=== PATIENT | male | born 1955 | race African-American/Black ===

== ENCOUNTER 2018-02-13 11:48 | Inpatient (IN) | payer OTHER ==
[2018-02-13 18:50] VITALS: BMI 29.0
--- NOTE | 2018-02-13 19:10 | HP ---
CIWA Score - CIWA Score Nausea/Vomitin-Int. Nausea w/Dry Heave Muscle Tremors: 2 Anxiety: 3 Agitation: 2 Paroxysmal Sweats: 2 Orientation: 0-Oriented Tacttile Disturbances: 1-Very Mild Itch/Numbness (both feet) Auditory Disturbances: 0-None Visual Disturbances: 0-None Headache: 2-Mild CIWA-Ar Total Score: 16 Admission ROS BHS - HPI Chief Complaint: alcohol withdrawal symptoms Allergies/Adverse Reactions: Allergies Allergy/AdvReac Type Severity Reaction Status Date / Time No Known Allergies Allergy Verified 02/13/18 18:42 History of Present Illness: 62 yo male with hx of alcohol, cocaine and nicotine dependence is here seeking alcohol detox. Reports six visits to the emergency for chest pain, last admission one week ago at [facility]. PMHX: GERD, HTN, Angina, CAD with hx STENT x 2, HDL, OA, chronic back pain, depression, anxiety, bipolar and PTSD. Denies hx of seizures, reports frequent EOTH related blackouts, five episodes in the last three weeks. Longest period of sobriety two years while in [facility]. Exam Limitations: No Limitations - Ebola screening Have you traveled outside of the country in the last 21 days: No Have you had contact with anyone from an Ebola affected area: No Have you been sick,other than usual withdrawal symptoms: No Do you have a fever: No - Review of Systems Constitutional: Diaphoresis EENT: reports: Cataracts (bilateral) Respiratory: reports: No Symptoms reported Cardiac: reports: See HPI, Lightheadedness GI: reports: Diarrhea, Poor Fluid Intake : reports: No Symptoms Reported Musculoskeletal: reports: Back Pain, Joint Pain Integumentary: reports: No Symptoms Reported Neuro: reports: Headache Endocrine: reports: Increased Thirst Hematology: reports: See HPI Psychiatric: reports: Orientated x3, Depressed Other Systems: Reviewed and Negative Patient History - Patient Medical History Hx Anemia: No Hx Asthma: No Hx Chronic Obstructive Pulmonary Disease (COPD): No Hx Cancer: No Hx Cardiac Disorders: Yes (hx of STENt x 2 ) Hx Congestive Heart Failure: No Hx Hypertension: Yes Hx Hypercholesterolemia: Yes Hx Pacemaker: No HX Cerebrovascular Accident: No Hx Seizures: No Hx Dementia: No Hx Diabetes: No Hx Gastrointestinal Disorders: Yes Hx Liver Disease: No Hx Genitourinary Disorders: No Hx Sexually Transmitted Disorders: No Hx Renal Disease (ESRD): No Hx Thyroid Disease: No Hx Human Immunodeficiency Virus (HIV): No (last tested aug 2017) Hx Hepatitis C: Yes (treated ) Hx Depression: Yes Hx Suicide Attempt: No Hx Bipolar Disorder: Yes Hx Schizophrenia: No - Patient Surgical History Past Surgical History: Yes Hx Neurologic Surgery: No Hx Cataract Extraction: Yes (2 STENTS 2010) Hx Cardiac Surgery: No Hx Lung Surgery: No Hx Breast Surgery: No Hx Breast Biopsy: No Hx Abdominal Surgery: No Hx Appendectomy: No Hx Cholecystectomy: No Hx Genitourinary Surgery: No Hx Section: No Hx Orthopedic Surgery: No Hx Hysterectomy: No Anesthesia Reaction: No - PPD History Previous Implant?: No Documented Results: Negative w/o proof PPD to be Administered?: Yes - Smoking Cessation Smoking history: Current every day smoker Have you smoked in the past 12 months: Yes Aproximately how many cigarettes per day: 20 Hx Chewing Tobacco Use: No Initiated information on smoking cessation: Yes 'Breaking Loose' booklet given: 02/13/18 - Substance & Tx. History Hx Alcohol Use: Yes Substance Use Type: Alcohol, Cocaine Hx Substance Use Treatment: Yes (ACI three weeks ago ) - Substances Abused Alcohol Route: Oral Frequency: Daily Amount used: 1 L LIQUOR AND 6/PACK BEER Age of first use: 18 Date of Last Use: 02/13/18 Cocaine Route: Smoking Frequency: Daily Amount used: 1 GRAM Age of first use: 18 Date of Last Use: 02/13/18 Family Disease History - Family Disease History Family History: Unable to Obtain Admission Physical Exam BHS - Vital Signs Vital Signs: Vital Signs - 24 hr 02/13/18 18:47 Temperature 98.7 F Pulse Rate 89 Respiratory 18 Rate Blood Pressure 108/64 - Physical General Appearance: Yes: Appropriately Dressed, Sweating, Anxious HEENTM: Yes: EOMI, Hearing grossly Normal, Normal ENT Inspection, Normocephalic , Normal Voice, JIL, Pharynx Normal, Tm's normal Respiratory: Yes: Chest Non-Tender, Lungs Clear, Normal Breath Sounds, No Respiratory Distress, No Accessory Muscle Use Neck: Yes: Within Normal Limits Breast: Yes: Breast Exam Deferred Cardiology: Yes: Regular Rhythm, Regular Rate Abdominal: Yes: Normal Bowel Sounds, Non Tender, Soft, Protuberent Genitourinary: Yes: Within Normal Limits Back: Yes: Normal Inspection Musculoskeletal: Yes: full range of Motion, Gait Steady, Pelvis Stable, Back pain, Other (b/l knee pain) Extremities: Yes: Normal Capillary Refill, Normal Inspection, Normal Range of Motion, Non-Tender Neurological: Yes: 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 NML intact, Fully Oriented, Alert, Motor Strength 5/5, Depressed Affect Integumentary: Yes: Normal Color, Warm, Diaphoresis Lymphatic: Yes: Within Normal Limits - Diagnostic (1) HTN (hypertension) Current Visit: Yes Status: Chronic Qualifiers: Hypertension type: essential hypertension Qualified Code(s): I10 - Essential (primary) hypertension (2) Hyperlipidemia Current Visit: Yes Status: Chronic Qualifiers: Hyperlipidemia type: unspecified Qualified Code(s): E78.5 - Hyperlipidemia , unspecified (3) Coronary artery disease Current Visit: Yes Status: Chronic (4) History of heart artery stent Current Visit: Yes Status: Chronic (5) GERD (gastroesophageal reflux disease) Current Visit: Yes Status: Chronic Qualifiers: Esophagitis presence: without esophagitis Qualified Code(s): K21.9 - Gastro -esophageal reflux disease without esophagitis (6) Cocaine dependence Current Visit: Yes Status: Acute Qualifiers: Substance use status: uncomplicated Qualified Code(s): F14.20 - Cocaine dependence, uncomplicated (7) Alcohol dependence with withdrawal Current Visit: Yes Status: Acute Qualifiers: Complication of substance-induced condition: uncomplicated Qualified Code(s ): F10.230 - Alcohol dependence with withdrawal, uncomplicated Cleared for Admission [facility] - Detox or Rehab [facility] Level of Care: Medically Managed Detox Regimen/Protocol: Librium [facility] Breath Alcohol Content Breath Alcohol Content: 0.118 Urine Drug Screen - Results Drug Screen Negative: No Urine Drug Screen Results: DESIREE-Cocaine, BZO-Benzodiazepines
[2018-02-13] MEDS ORDERED: MAGNESIUM CITRATE 300 ML BOTTLE PO PRN (19:31)
[2018-02-13] MEDS ORDERED: chlordiazePOXIDE HCL 25 MG CAPSULE PO ONE (19:31)
[2018-02-13] MEDS ORDERED: MAGNESIUM HYDROX 2400MG/30ML ORAL SUSPENSION 30 ML CUP PO PRN (19:31)
[2018-02-13] MEDS ORDERED: MAG HYDROX/AL HYDROX/SIMETH 30 ML UNIT-DOSE CUP PO PRN (19:31)
[2018-02-13] MEDS ORDERED: guaiFENesin/D-METHORPHAN HB 10 ML UNIT-DOSE CUPS PO PRN (19:31)
[2018-02-13] MEDS ORDERED: chlordiazePOXIDE HCL 25 MG CAPSULE PO PRN (19:31)
[2018-02-13] MEDS ORDERED: P-EPHED 60MG/TRIPROLIDI 2.5MG TABLET PO PRN (19:31)
[2018-02-13] MEDS ORDERED: LOPERAMIDE HCL 2 MG CAPSULE PO PRN (19:31)
[2018-02-13] MEDS ORDERED: MENTHOL/PHENOL 1 EACH UD MM PRN (19:31)
[2018-02-13] MEDS ORDERED: ACETAMINOPHEN 325 MG TABLET (FP) PO PRN (19:31)
[2018-02-13] MEDS: GABAPENTIN 300 MG CAPSULE (FP) PO SCH (21:13)
[2018-02-13] MEDS: CARVEDILOL 6.25 MG TABLET (FP) PO SCH (21:13)
[2018-02-13] MEDS: ATORVASTATIN CA 40 MG TABLET (FP) PO SCH (21:13)
[2018-02-13] MEDS: THIAMINE HCL 100 MG TABLET (FP) PO SCH (21:13)
[2018-02-13] MEDS ORDERED: MELATONIN 5 MG TABLETS PO PRN (22:00)
[2018-02-13] MEDS ORDERED: CLOPIDOGREL BISULFATE 75 MG TABLET (FP) PO SCH (22:00)
[2018-02-13] MEDS: chlordiazePOXIDE HCL 25 MG CAPSULE PO SCH (22:42)
[2018-02-13 23:23] LABS: URINE APPEARANCE SLCLOUDY; URINE BILIRUBIN NEGATIVE (<2.0 mg/dL); URINE COLOR YELLOW; URINE GLUCOSE (UA) NEGATIVE (NEGATIVE); URINE KETONE NEGATIVE (NEGATIVE); URINE LEUK ESTERASE NEGATIVE (NEGATIVE); URINE NITRITE NEGATIVE (NEGATIVE); URINE PROTEIN NEGATIVE (NEGATIVE); URINE UROBILINOGEN NEGATIVE mg/dL (0.2-1.0)
[2018-02-14] MEDS: chlordiazePOXIDE HCL 25 MG CAPSULE PO SCH ×4 (05:46→22:40)
[2018-02-14] MEDS: GABAPENTIN 300 MG CAPSULE (FP) PO SCH ×3 (05:46→22:39)
[2018-02-14] MEDS ORDERED: PATIENT'S OWN MEDICATION (NON-FORMULARY) (Omeprazole Magnesium [Prilosec Otc] 20 MG) PO SCH (10:00)
[2018-02-14] MEDS ORDERED: PANTOPRAZOLE 20 MG TABLET (FP) PO SCH (10:00)
[2018-02-14] MEDS: CARVEDILOL 6.25 MG TABLET (FP) PO SCH ×2 (10:08→22:39)
[2018-02-14] MEDS: PRENATAL VITAMINS W/ FOLIC ACID TABLET (FP) PO SCH (10:08)
[2018-02-14] MEDS: ASPIRIN COATED 81 MG TABLET.EC PO SCH (10:08)
[2018-02-14] MEDS: ISOSORBIDE MONONITRATE 30 MG TAB.SR.24H (FP) PO SCH (10:08)
[2018-02-14] MEDS: LISINOPRIL 10 MG TABLET (FP) PO SCH (10:08)
[2018-02-14 10:25] LABS: HEMATOCRIT 40.6 % (35.4-49); MCH 32.8 pg (25.7-33.7); MCHC 34.5 g/dl (32.0-35.9); MEAN CELL VOLUME 95.3 fl (80-96); MEAN PLT VOLUME 7.8 fl (7.5-11.1); PLATELET COUNT 215 K/MM3 (134-434); RBC 4.26 M/mm3 (4.00-5.60); RDW 14.4 % (11.9-15.9)
[2018-02-14 10:46] LABS: ALBUMIN 3.2 g/dl (3.4-5.0); ANION GAP 7 (8-16); BLOOD UREA NITROGEN 11 mg/dL (7-18); CALCIUM 8.2 mg/dL (8.5-10.1); CHLORIDE 105 mmol/L (98-107); CO2 31 mmol/L (21-32); GLUCOSE,RANDOM 106 mg/dL (74-106); POTASSIUM 3.3 mmol/L (3.5-5.1); SGOT/AST 17 U/L (15-37); SGPT/ALT 20 U/L (12-78); SODIUM 143 mmol/L (136-145)
[2018-02-14 10:49] LABS: ALK PHOS 65 U/L (45-117); BILIRUBIN,TOTAL 0.3 mg/dL (0.2-1.0); TOT PROT 6.4 g/dl (6.4-8.2)
--- NOTE | 2018-02-14 10:49 | PN ---
S CIWA - CIWA Score Nausea/Vomitin-No Nausea/No Vomiting Muscle Tremors: 3 Anxiety: 4-Mod. Anxious/Guarded Agitation: 4-Moderately Restless Paroxysmal Sweats: 2 Orientation: 0-Oriented Tacttile Disturbances: 0-None Auditory Disturbances: 0-None Visual Disturbances: 0-None Headache: 0-None Present CIWA-Ar Total Score: 13 BHS Progress Note (SOAP) Subjective: C/O ANXIETY,SWEATS,SLIGHT TREMORS,FATIGUE. Objective: 02/14/18 10:44 Vital Signs 02/14/18 02/14/18 02/14/18 03:30 06:17 09:48 Temperature 97.1 F L 97.4 F L Pulse Rate 65 75 Respiratory 18 18 18 Rate Blood Pressure 123/72 161/94 Laboratory Tests 02/13/18 02/14/18 22:00 07:00 WBC 7.0 RBC 4.26 Hgb 14.0 Hct 40.6 MCV 95.3 MCH 32.8 MCHC 34.5 RDW 14.4 Plt Count 215 MPV 7.8 Urine Color Yellow Urine Appearance Slcloudy Urine pH 5.0 Ur Specific [place] 1.011 Urine Protein Negative Urine Glucose (UA) Negative Urine Ketones Negative Urine Blood Negative Urine Nitrite Negative Urine Bilirubin Negative Urine Urobilinogen Negative Ur Leukocyte Esterase Negative Assessment: 02/14/18 10:44 WITHDRAWAL SX Plan: CONTINUE DETOX
--- NOTE | 2018-02-14 11:14 | EKG ---
Test Reason : Blood Pressure : / mmHG Vent. Rate : 084 BPM Atrial Rate : 084 BPM P-R Int : 128 ms QRS Dur : 102 ms QT Int : 384 ms P-R-T Axes : 014 071 221 degrees QTc Int : 453 ms NORMAL SINUS RHYTHM ABNORMAL ECG NO PREVIOUS ECGS AVAILABLE Confirmed by SAMPSON FARIAS MD ([id number]) on 02/14/2018 11:13:58 AM Referred By: Confirmed By:SAMPSON FARIAS MD
--- NOTE | 2018-02-14 14:00 | CONSULT ---
[facility] Psychiatric Consult - Data Date of interview: 02/14/18 Admission source: [facility] Identifying data: Readmission to [facility] for this 62 y/o AA male seeking detox treatment on for alcohol and cocaine dependence.Patient is single , a father of five,homeless,unemployed and supported on welfare. Substance Abuse History: Confirmed by the patient in this interview.Smoking history: Current every day smoker. Have you smoked in the past 12 months: Yes. Aproximately how many cigarettes per day: 20. Hx Chewing Tobacco Use: No. Initiated information on smoking cessation: Yes. 'Breaking Loose' booklet given : 02/13/18. - Substance & Tx. History. Hx Alcohol Use: Yes. Substance Use Type: Alcohol, Cocaine. Hx Substance Use Treatment: Yes (ACI three weeks ago ) . - Substances Abused. Alcohol. Route: Oral. Frequency: Daily. Amount used: 1 L LIQUOR AND 6/PACK BEER. Age of first use: 18. Date of Last Use: . Cocaine. Route: Smoking. Frequency: Daily. Amount used: 1 GRAM. Age of first use: 18. Date of Last Use: 02/13/18 Medical History: Multiple co-morbidites : hypertension,arthritis,GERD,coraonary artery disease (stents x 2),cataracts (bilateral),hepatitis C (treated),angina and a history of chronic lumbar pain. Psychiatric History: No reported history of psychiatric hospitalizations.Patient sees a psychiatrist at the [facility] in [facility].Diagnosed with MDD and mabnaged on a regimen of zoloft and trazodone (doses not recalled).Mr Folod denies history of suicide attempts. Physical/Sexual Abuse/Trauma History: Patient denies. Additional Comment: Urine Drug Screen Results: DESIREE-Cocaine, BZO- Benzodiazepines.Noted. Mental Status Exam - Mental Status Exam Alert and Oriented to: Time, Place, Person Cognitive Function: Good Patient Appearance: Well Groomed Mood: Hopeful Affect: Normal Range Patient Behavior: Fatigued, Cooperative Speech Pattern: Clear, Appropriate Voice Loudness: Normal Thought Process: Intact, Goal Oriented Thought Disorder: Not Present Hallucinations: Denies Suicidal Ideation: Denies Homicidal Ideation: Denies Insight/Judgement: Poor Sleep: Poorly, Difficulty falling asleep Appetite: Good Muscle strength/Tone: Normal Gait/Station: Normal Psychiatric Findings - Problem List ([place] 1, 2,3) (1) Alcohol dependence with withdrawal Current Visit: Yes Status: Acute Qualifiers: Complication of substance-induced condition: uncomplicated Qualified Code(s ): F10.230 - Alcohol dependence with withdrawal, uncomplicated (2) Cocaine dependence Current Visit: Yes Status: Acute Qualifiers: Substance use status: uncomplicated Qualified Code(s): F14.20 - Cocaine dependence, uncomplicated (3) Nicotine dependence Current Visit: Yes Status: Acute (4) Substance induced mood disorder Current Visit: Yes Status: Acute (5) Insomnia Current Visit: Yes Status: Acute - Initial Treatment Plan Initial Treatment Plan: Psychoeducation.Sleep hygiene.Detoxification in progress.Patient declines to resume trazodone (drowsiness in the morning) but agrees to restart mirtazapine.Ordered : remeron 7.5 mg po hs.Side effects/ benefits discussed with the patient.Consent (verbal) given.Observation.
[2018-02-14] MEDS: CLOPIDOGREL BISULFATE 75 MG TABLET (FP) PO SCH (18:50)
[2018-02-14] MEDS: ATORVASTATIN CA 40 MG TABLET (FP) PO SCH (22:39)
[2018-02-14] MEDS: THIAMINE HCL 100 MG TABLET (FP) PO SCH (22:39)
[2018-02-14] MEDS: RANITIDINE HCL 150 MG TABLET (FP) PO SCH (22:39)
[2018-02-14] MEDS: MIRTAZAPINE 15 MG TABLET (FP) PO SCH (22:39)
[2018-02-15] MEDS: chlordiazePOXIDE HCL 25 MG CAPSULE PO SCH ×3 (06:14→17:20)
[2018-02-15] MEDS: GABAPENTIN 300 MG CAPSULE (FP) PO SCH ×3 (06:14→22:32)
[2018-02-15] MEDS: ISOSORBIDE MONONITRATE 30 MG TAB.SR.24H (FP) PO SCH (10:05)
[2018-02-15] MEDS: CARVEDILOL 6.25 MG TABLET (FP) PO SCH ×2 (10:05→22:33)
[2018-02-15] MEDS: RANITIDINE HCL 150 MG TABLET (FP) PO SCH ×2 (10:05→22:33)
[2018-02-15] MEDS: PRENATAL VITAMINS W/ FOLIC ACID TABLET (FP) PO SCH (10:05)
[2018-02-15] MEDS: LISINOPRIL 10 MG TABLET (FP) PO SCH (10:05)
[2018-02-15] MEDS: SERTRALINE HCL 25 MG TABLET (FP) PO SCH (10:05)
[2018-02-15] MEDS: ASPIRIN COATED 81 MG TABLET.EC PO SCH (10:05)
--- NOTE | 2018-02-15 16:11 | PN ---
[facility] CIWA - CIWA Score Nausea/Vomitin-No Nausea/No Vomiting Muscle Tremors: 3 Anxiety: 3 Agitation: 2 Paroxysmal Sweats: No Perspiration Orientation: 2-Disoriented Date<2 days Tacttile Disturbances: 2-Mild Itch/Numbness/Burn Auditory Disturbances: 0-None Visual Disturbances: 1-Very Mild Sensitivity Headache: 0-None Present CIWA-Ar Total Score: 13 S Progress Note (SOAP) Subjective: Fatigue, Tremors, Anxious. Objective: PATIENT A & O X 2 (UNCERTAIN ABOUT CURRENT DAY / DATE). PATIENT OBSERVED AMBULATING ON UNIT. NO ACUTE DISTRESS. PATIENT DENIES CHEST PAIN. 02/15/18 16:10 Vital Signs Temperature 96.8 F L 02/15/18 13:45 Pulse Rate 72 02/15/18 13:45 Respiratory Rate 18 02/15/18 13:45 Blood Pressure 161/76 02/15/18 13:45 O2 Sat by Pulse Oximetry (%) Laboratory Tests 02/13/18 02/14/18 02/14/18 22:00 07:00 07:00 WBC 7.0 RBC 4.26 Hgb 14.0 Hct 40.6 MCV 95.3 MCH 32.8 MCHC 34.5 RDW 14.4 Plt Count 215 MPV 7.8 Sodium Potassium Chloride Carbon Dioxide Anion Gap BUN Creatinine Creat Clearance w eGFR Random Glucose Calcium Total Bilirubin AST ALT Alkaline Phosphatase Total Protein Albumin Urine Color Yellow Urine Appearance Slcloudy Urine pH 5.0 Ur Specific [place] 1.011 Urine Protein Negative Urine Glucose (UA) Negative Urine Ketones Negative Urine Blood Negative Urine Nitrite Negative Urine Bilirubin Negative Urine Urobilinogen Negative Ur Leukocyte Esterase Negative RPR Titer HIV 1&2 Antibody Screen Negative HIV P24 Antigen Negative 02/14/18 02/14/18 07:00 07:00 WBC RBC Hgb Hct MCV MCH MCHC RDW Plt Count MPV Sodium 143 Potassium 3.3 L Chloride 105 Carbon Dioxide 31 Anion Gap 7 L BUN 11 Creatinine 1.0 Creat Clearance w eGFR > 60 Random Glucose 106 Calcium 8.2 L Total Bilirubin 0.3 AST 17 ALT 20 Alkaline Phosphatase 65 Total Protein 6.4 Albumin 3.2 L Urine Color Urine Appearance Urine pH Ur Specific [place] Urine Protein Urine Glucose (UA) Urine Ketones Urine Blood Urine Nitrite Urine Bilirubin Urine Urobilinogen Ur Leukocyte Esterase RPR Titer Nonreactive HIV 1&2 Antibody Screen HIV P24 Antigen LABS NOTED. RESULTS OF ADMISSION AND REPEAT ECG'S NOTED. PATIENT REPORTS HISTORY OF CAD. 02/15/18 16:11 Assessment: 02/15/18 16:11 WITHDRAWAL SYMPTOMS. HYPERTENSION. HYPOKALEMIA. 02/15/18 16:13 Plan: CONTINUE DETOX. K-DUE, 20 MEQ PO BID.
[2018-02-15] MEDS: POTASSIUM CHLORIDE TABS 20 MEQ TABLET.ER (FP) PO SCH (17:20)
[2018-02-15] MEDS: CLOPIDOGREL BISULFATE 75 MG TABLET (FP) PO SCH (18:57)
[2018-02-15] MEDS: ATORVASTATIN CA 40 MG TABLET (FP) PO SCH (22:31)
[2018-02-15] MEDS: THIAMINE HCL 100 MG TABLET (FP) PO SCH (22:31)
[2018-02-15] MEDS: chlordiazePOXIDE 5 MG CAPSULE PO SCH (22:31)
[2018-02-15] MEDS: MIRTAZAPINE 15 MG TABLET (FP) PO SCH (22:32)
[2018-02-16] MEDS: GABAPENTIN 300 MG CAPSULE (FP) PO SCH ×3 (05:39→22:01)
[2018-02-16] MEDS: chlordiazePOXIDE 5 MG CAPSULE PO SCH ×3 (05:39→16:30)
[2018-02-16] MEDS: ISOSORBIDE MONONITRATE 30 MG TAB.SR.24H (FP) PO SCH (10:04)
[2018-02-16] MEDS: PRENATAL VITAMINS W/ FOLIC ACID TABLET (FP) PO SCH (10:04)
[2018-02-16] MEDS: POTASSIUM CHLORIDE TABS 20 MEQ TABLET.ER (FP) PO SCH ×2 (10:04→17:11)
[2018-02-16] MEDS: SERTRALINE HCL 25 MG TABLET (FP) PO SCH (10:04)
[2018-02-16] MEDS: ASPIRIN COATED 81 MG TABLET.EC PO SCH (10:05)
[2018-02-16] MEDS: LISINOPRIL 10 MG TABLET (FP) PO SCH (10:05)
[2018-02-16] MEDS: RANITIDINE HCL 150 MG TABLET (FP) PO SCH ×2 (10:05→22:02)
[2018-02-16] MEDS: CARVEDILOL 6.25 MG TABLET (FP) PO SCH (10:05)
--- NOTE | 2018-02-16 14:38 | PN ---
BHS Progress Note (SOAP) Subjective: Diarrhea Objective: 02/16/18 14:37 Last Vital Signs Temp Pulse Resp BP Pulse Ox 97.0 F L 63 19 160/92 02/16/18 09:36 02/16/18 09:36 02/16/18 09:36 02/16/18 09:36 Laboratory Tests 02/13/18 02/14/18 02/14/18 22:00 07:00 07:00 WBC 7.0 RBC 4.26 Hgb 14.0 Hct 40.6 MCV 95.3 MCH 32.8 MCHC 34.5 RDW 14.4 Plt Count 215 MPV 7.8 Sodium Potassium Chloride Carbon Dioxide Anion Gap BUN Creatinine Creat Clearance w eGFR Random Glucose Calcium Total Bilirubin AST ALT Alkaline Phosphatase Total Protein Albumin Urine Color Yellow Urine Appearance Slcloudy Urine pH 5.0 Ur Specific [place] 1.011 Urine Protein Negative Urine Glucose (UA) Negative Urine Ketones Negative Urine Blood Negative Urine Nitrite Negative Urine Bilirubin Negative Urine Urobilinogen Negative Ur Leukocyte Esterase Negative RPR Titer HIV 1&2 Antibody Screen Negative HIV P24 Antigen Negative 02/14/18 02/14/18 07:00 07:00 WBC RBC Hgb Hct MCV MCH MCHC RDW Plt Count MPV Sodium 143 Potassium 3.3 L Chloride 105 Carbon Dioxide 31 Anion Gap 7 L BUN 11 Creatinine 1.0 Creat Clearance w eGFR > 60 Random Glucose 106 Calcium 8.2 L Total Bilirubin 0.3 AST 17 ALT 20 Alkaline Phosphatase 65 Total Protein 6.4 Albumin 3.2 L Urine Color Urine Appearance Urine pH Ur Specific [place] Urine Protein Urine Glucose (UA) Urine Ketones Urine Blood Urine Nitrite Urine Bilirubin Urine Urobilinogen Ur Leukocyte Esterase RPR Titer Nonreactive HIV 1&2 Antibody Screen HIV P24 Antigen Labs reviewed: [place] 3.3 (supplemented) Assessment: 02/16/18 14:37 Withdrawal symptoms Noted with hypokalemia Plan: Continue detox Hypokalemia: supplemented
--- NOTE | 2018-02-16 17:58 | PN ---
S Progress Note Note: bp 183/101,hx of htn on medication,no complaint,withdrawal symptom, will give clonidine 0.1 mg po now,bp monitoring,continue detox
[2018-02-16] MEDS ORDERED: cloNIDine HCL 0.1 MG TABLET PO ONE (18:30)
[2018-02-16] MEDS ORDERED: ATORVASTATIN CA 20 MG TABLET (FP) ONE (20:01)
[2018-02-16] MEDS: CLOPIDOGREL BISULFATE 75 MG TABLET (FP) PO SCH (22:01)
[2018-02-16] MEDS: MIRTAZAPINE 15 MG TABLET (FP) PO SCH (22:02)
[2018-02-16] MEDS: ATORVASTATIN CA 40 MG TABLET (FP) PO SCH (22:02)
[2018-02-16] MEDS: THIAMINE HCL 100 MG TABLET (FP) PO SCH (22:02)
[2018-02-16] MEDS: CARVEDILOL 3.125 MG TABLET (FP) PO SCH (22:03)
[2018-02-17] MEDS: GABAPENTIN 300 MG CAPSULE (FP) PO SCH ×3 (06:37→22:19)
[2018-02-17] MEDS: chlordiazePOXIDE HCL 10 MG CAPSULE PO SCH ×2 (06:37→11:29)
--- NOTE | 2018-02-17 08:53 | EKG ---
Test Reason : Blood Pressure : / mmHG Vent. Rate : 087 BPM Atrial Rate : 087 BPM P-R Int : 130 ms QRS Dur : 104 ms QT Int : 372 ms P-R-T Axes : 074 062 246 degrees QTc Int : 447 ms NORMAL SINUS RHYTHM POSSIBLE LEFT ATRIAL ENLARGEMENT LEFT VENTRICULAR HYPERTROPHY ABNORMAL ECG WHEN COMPARED WITH ECG OF 13-FEB-2018 20:51, NO SIGNIFICANT CHANGE WAS FOUND Confirmed by Michelle Martinez ([id number]) on 02/17/2018 8:52:37 AM Also confirmed by LIONEL LIZ MD ([id number]) on 02/17/2018 11:50:07 AM Referred By: Confirmed By:LIONEL LIZ MD
[2018-02-17] MEDS: RANITIDINE HCL 150 MG TABLET (FP) PO SCH ×2 (11:21→22:19)
[2018-02-17] MEDS: PRENATAL VITAMINS W/ FOLIC ACID TABLET (FP) PO SCH (11:21)
[2018-02-17] MEDS: ISOSORBIDE MONONITRATE 30 MG TAB.SR.24H (FP) PO SCH (11:21)
[2018-02-17] MEDS: CARVEDILOL 3.125 MG TABLET (FP) PO SCH ×2 (11:22→22:19)
[2018-02-17] MEDS: LISINOPRIL 10 MG TABLET (FP) PO SCH (11:22)
[2018-02-17] MEDS: POTASSIUM CHLORIDE TABS 20 MEQ TABLET.ER (FP) PO SCH ×2 (11:22→17:02)
[2018-02-17] MEDS: SERTRALINE HCL 25 MG TABLET (FP) PO SCH (11:22)
--- NOTE | 2018-02-17 11:26 | PN ---
S Progress Note (SOAP) Subjective: Sleepy Objective: 02/17/18 11:24 A & O x 3 not in acute distress Vital Signs Temperature 96.8 F L 02/17/18 09:16 Pulse Rate 73 02/17/18 09:16 Respiratory Rate 18 02/17/18 09:16 Blood Pressure 151/95 02/17/18 09:16 O2 Sat by Pulse Oximetry (%) Pending Rehab bed Assessment: 02/17/18 11:25 detox completed Pt being processed for rehab bed tomorrow by counselors as he verbalized high risk of relapse if discharged today since [birth year] Pt for safe discharge tomorrow Plan: For discharge tomorrow
[2018-02-17] MEDS: ASPIRIN COATED 81 MG TABLET.EC PO SCH (11:28)
--- NOTE | 2018-02-17 17:14 | PN ---
S Progress Note Note: Vital Signs Temperature 98.2 F 02/17/18 17:10 Pulse Rate 65 02/17/18 17:10 Respiratory Rate 18 02/17/18 17:10 Blood Pressure 179/98 02/17/18 17:10 O2 Sat by Pulse Oximetry (%) elevated BP stat dose clonidine 0.1 mg increase fluids continue to monitor
[2018-02-17] MEDS ORDERED: cloNIDine HCL 0.1 MG TABLET PO ONE (17:45)
[2018-02-17] MEDS: CLOPIDOGREL BISULFATE 75 MG TABLET (FP) PO SCH (18:02)
[2018-02-17] MEDS: MIRTAZAPINE 15 MG TABLET (FP) PO SCH (22:19)
[2018-02-17] MEDS: THIAMINE HCL 100 MG TABLET (FP) PO SCH (22:19)
[2018-02-17] MEDS: ATORVASTATIN CA 40 MG TABLET (FP) PO SCH (22:19)
[2018-02-18] MEDS: GABAPENTIN 300 MG CAPSULE (FP) PO SCH (06:03)
[2018-02-18 09:42] VITALS: BP 155/77; PULSE 56; TEMP 97.1
[2018-02-18] MEDS: POTASSIUM CHLORIDE TABS 20 MEQ TABLET.ER (FP) PO SCH (10:17)
[2018-02-18] MEDS: PRENATAL VITAMINS W/ FOLIC ACID TABLET (FP) PO SCH (10:17)
[2018-02-18] MEDS: SERTRALINE HCL 25 MG TABLET (FP) PO SCH (10:17)
[2018-02-18] MEDS: ASPIRIN COATED 81 MG TABLET.EC PO SCH (10:18)
[2018-02-18] MEDS: LISINOPRIL 10 MG TABLET (FP) PO SCH (10:18)
[2018-02-18] MEDS: ISOSORBIDE MONONITRATE 30 MG TAB.SR.24H (FP) PO SCH (10:18)
[2018-02-18] MEDS: RANITIDINE HCL 150 MG TABLET (FP) PO SCH (10:18)
[2018-02-18] MEDS: CARVEDILOL 3.125 MG TABLET (FP) PO SCH (10:18)
--- NOTE | 2018-02-18 14:21 | PN ---
S Progress Note (SOAP) Subjective: Patient denies current Detox symptoms and reports that he feels well overall. Objective: PATIENT A & O X 3, OBSERVED AMBULATING ON UNIT. NO ACUTE DISTRESS. 02/18/18 14:17 Vital Signs Temperature 97.1 F L 02/18/18 09:41 Pulse Rate 56 L 02/18/18 09:41 Respiratory Rate 16 02/18/18 09:41 Blood Pressure 155/77 02/18/18 09:41 O2 Sat by Pulse Oximetry (%) Laboratory Tests 02/13/18 02/14/18 02/14/18 22:00 07:00 07:00 WBC 7.0 RBC 4.26 Hgb 14.0 Hct 40.6 MCV 95.3 MCH 32.8 MCHC 34.5 RDW 14.4 Plt Count 215 MPV 7.8 Sodium Potassium Chloride Carbon Dioxide Anion Gap BUN Creatinine Creat Clearance w eGFR Random Glucose Calcium Total Bilirubin AST ALT Alkaline Phosphatase Total Protein Albumin Urine Color Yellow Urine Appearance Slcloudy Urine pH 5.0 Ur Specific [place] 1.011 Urine Protein Negative Urine Glucose (UA) Negative Urine Ketones Negative Urine Blood Negative Urine Nitrite Negative Urine Bilirubin Negative Urine Urobilinogen Negative Ur Leukocyte Esterase Negative RPR Titer HIV 1&2 Antibody Screen Negative HIV P24 Antigen Negative 02/14/18 02/14/18 07:00 07:00 WBC RBC Hgb Hct MCV MCH MCHC RDW Plt Count MPV Sodium 143 Potassium 3.3 L Chloride 105 Carbon Dioxide 31 Anion Gap 7 L BUN 11 Creatinine 1.0 Creat Clearance w eGFR > 60 Random Glucose 106 Calcium 8.2 L Total Bilirubin 0.3 AST 17 ALT 20 Alkaline Phosphatase 65 Total Protein 6.4 Albumin 3.2 L Urine Color Urine Appearance Urine pH Ur Specific [place] Urine Protein Urine Glucose (UA) Urine Ketones Urine Blood Urine Nitrite Urine Bilirubin Urine Urobilinogen Ur Leukocyte Esterase RPR Titer Nonreactive HIV 1&2 Antibody Screen HIV P24 Antigen LABS NOTED. Assessment: 02/18/18 14:17 COMPLETION OF DETOX REGIMEN. Plan: PATIENT SCHEDULED FOR DISCHARGE FROM DETOX UNIT TODAY. PATIENT GOING ON TO [facility] FOR AFTERCARE.
--- NOTE | 2018-02-18 14:27 | DS ---
[facility] Detox Discharge Summary Admission Date: 02/13/18 Discharge Date: 02/18/18 - History Present History: Alcohol Dependence, Cocaine Dependence Additional Comments: PATIENT GOING ON TO [facility] ([facility] FOR AFTERCARE. PATIENT WAS DISCHARGED FROM DETOX UNIT TO BE TAKEN TO REHAB UNIT IN STABLE MEDICAL CONDITION. Pertinent Past History: Hyperlipidemia, HTN, Insomnia, Nicotine Dependence, History of Coronary Artery Disease, History of Heart Artery Stent Placement, History of Depression, Hypokalemia. - Physical Exam Results Vital Signs: Vital Signs Temperature 97.1 F L 02/18/18 09:41 Pulse Rate 56 L 02/18/18 09:41 Respiratory Rate 16 02/18/18 09:41 Blood Pressure 155/77 02/18/18 09:41 O2 Sat by Pulse Oximetry (%) Pertinent Admission Physical Exam Findings: WITHDRAWAL SYMPTOMS. Laboratory Tests 02/13/18 02/14/18 02/14/18 22:00 07:00 07:00 WBC 7.0 RBC 4.26 Hgb 14.0 Hct 40.6 MCV 95.3 MCH 32.8 MCHC 34.5 RDW 14.4 Plt Count 215 MPV 7.8 Sodium Potassium Chloride Carbon Dioxide Anion Gap BUN Creatinine Creat Clearance w eGFR Random Glucose Calcium Total Bilirubin AST ALT Alkaline Phosphatase Total Protein Albumin Urine Color Yellow Urine Appearance Slcloudy Urine pH 5.0 Ur Specific [place] 1.011 Urine Protein Negative Urine Glucose (UA) Negative Urine Ketones Negative Urine Blood Negative Urine Nitrite Negative Urine Bilirubin Negative Urine Urobilinogen Negative Ur Leukocyte Esterase Negative RPR Titer HIV 1&2 Antibody Screen Negative HIV P24 Antigen Negative 02/14/18 02/14/18 07:00 07:00 WBC RBC Hgb Hct MCV MCH MCHC RDW Plt Count MPV Sodium 143 Potassium 3.3 L Chloride 105 Carbon Dioxide 31 Anion Gap 7 L BUN 11 Creatinine 1.0 Creat Clearance w eGFR > 60 Random Glucose 106 Calcium 8.2 L Total Bilirubin 0.3 AST 17 ALT 20 Alkaline Phosphatase 65 Total Protein 6.4 Albumin 3.2 L Urine Color Urine Appearance Urine pH Ur Specific [place] Urine Protein Urine Glucose (UA) Urine Ketones Urine Blood Urine Nitrite Urine Bilirubin Urine Urobilinogen Ur Leukocyte Esterase RPR Titer Nonreactive HIV 1&2 Antibody Screen HIV P24 Antigen LABS NOTED. - Treatment Hospital Course: Detox Protocol Followed, Detoxed Safely, Responded well, Discharged Condition Good, Rehab Referral Accepted Patient has Accepted a Rehab Referral to: [facility] ([facility] . - Medication Discharge Medications: Ambulatory Orders Amlodipine Besylate [Norvasc -] 5 mg PO DAILY 02/13/18 Aspirin [Aspirin EC] 81 mg PO DAILY 02/13/18 Atorvastatin Ca [Lipitor] 40 mg PO HS 02/13/18 Carvedilol [Coreg -] 3.125 mg PO BID 02/13/18 Clopidogrel Bisulfate [Plavix] 75 mg PO HS 02/13/18 Gabapentin 600 mg PO TID 02/13/18 Isosorbide Mononitrate [Isosorbide Mononitrate ER] 30 mg PO DAILY 02/13/18 Lisinopril 10 mg PO DAILY 02/13/18 Mirtazapine [Remeron -] 15 mg PO DAILY 02/13/18 Omeprazole Magnesium [Prilosec Otc] 20 mg PO DAILY 02/13/18 Sertraline HCl [Zoloft] 25 mg PO DAILY 02/13/18 - Diagnosis (1) Hypokalemia Status: Acute (2) Alcohol dependence with withdrawal Status: Acute Qualifiers: Complication of substance-induced condition: uncomplicated Qualified Code(s ): F10.230 - Alcohol dependence with withdrawal, uncomplicated (3) Cocaine dependence Status: Chronic Qualifiers: Substance use status: uncomplicated Qualified Code(s): F14.20 - Cocaine dependence, uncomplicated (4) Coronary artery disease Status: Chronic Qualifiers: Coronary Disease-Associated Artery/Lesion type: unspecified vessel or lesion type [place] vs. transplanted heart: unspecified whether enterprise or transplanted heart Associated angina: angina presence unspecified Qualified Code(s): I25.10 - Atherosclerotic heart disease of [place] coronary artery without angina pectoris (5) GERD (gastroesophageal reflux disease) Status: Chronic Qualifiers: Esophagitis presence: without esophagitis Qualified Code(s): K21.9 - Gastro -esophageal reflux disease without esophagitis (6) HTN (hypertension) Status: Chronic Qualifiers: Hypertension type: essential hypertension Qualified Code(s): I10 - Essential (primary) hypertension (7) History of heart artery stent Status: Chronic (8) Hyperlipidemia Status: Chronic Qualifiers: Hyperlipidemia type: unspecified Qualified Code(s): E78.5 - Hyperlipidemia , unspecified (9) Insomnia Status: Acute Qualifiers: Insomnia type: unspecified Qualified Code(s): G47.00 - Insomnia, unspecified (10) Nicotine dependence Status: Acute Qualifiers: Nicotine product type: cigarettes Substance use status: uncomplicated Qualified Code(s): F17.210 - Nicotine dependence, cigarettes, uncomplicated (11) Substance induced mood disorder Status: Chronic - AMA Did Patient Leave Against Medical Advice: No
== END 2018-02-18 12:50 | disposition other institution (70) | DRG 774 ==
LOC: YASAS 11:48 → Y3N 18:56
PROVIDERS: ADMIT Surgery; ATTEND Surgery
PROC: HZ2ZZZZ Detoxification Services for Substance Abuse Treatment (ICD-10-PCS; principal; 2018-02-13)
DX: F10.230 Alcohol dependence with withdrawal, uncomplicated (principal); F14.20 Cocaine dependence, uncomplicated; F17.210 Nicotine dependence, cigarettes, uncomplicated; F19.24 Other psychoactive substance dependence with psychoactive substance-induced mood disorder; I10 Essential (primary) hypertension; I25.10 Atherosclerotic heart disease of native coronary artery without angina pectoris; E78.5 Hyperlipidemia, unspecified; E87.6 Hypokalemia; K21.9 Gastro-esophageal reflux disease without esophagitis; G47.00 Insomnia, unspecified; Z95.5 Presence of coronary angioplasty implant and graft
CPT/HCPCS: 36415; 80053; 81003; 85027; 86593; 87389; 93005; 93010; J0735

== ENCOUNTER 2018-02-18 13:24 | Inpatient (IN) | payer OTHER ==
[2018-02-18] MEDS ORDERED: IBUPROFEN 400 MG TABLET (FP) PO PRN (14:29)
[2018-02-18] MEDS ORDERED: LOPERAMIDE HCL 2 MG CAPSULE PO PRN (14:29)
[2018-02-18] MEDS ORDERED: MENTHOL/PHENOL 1 EACH UD MM PRN (14:29)
[2018-02-18] MEDS ORDERED: MAG HYDROX/AL HYDROX/SIMETH 30 ML UNIT-DOSE CUP PO PRN (14:29)
[2018-02-18] MEDS ORDERED: MAGNESIUM CITRATE 300 ML BOTTLE PO PRN (14:29)
[2018-02-18] MEDS ORDERED: guaiFENesin/D-METHORPHAN HB 10 ML UNIT-DOSE CUPS PO PRN (14:29)
[2018-02-18] MEDS ORDERED: MAGNESIUM HYDROX 2400MG/30ML ORAL SUSPENSION 30 ML CUP PO PRN (14:29)
[2018-02-18] MEDS ORDERED: ACETAMINOPHEN 325 MG TABLET (FP) PO PRN (14:29)
[2018-02-18] MEDS ORDERED: P-EPHED 60MG/TRIPROLIDI 2.5MG TABLET PO PRN (14:29)
--- NOTE | 2018-02-18 14:34 | HP ---
[facility] Rehab Assess/Revision - Admission History Admitted to Rehab from: [facility] Date of Admission to Rehab: 02/18/2018 - Vital signs Vital Signs: NOTED; STABLE. - Findings Detox History & Physical reviewed: Yes Concur with findings: Yes Comments/Additional Findings: PATIENT'S MEDICAL / MEDICATION HISTORY REVIEWED PRIOR TO DISCHARGE FROM DETOX UNIT. PATIENT WAS DISCHARGED FROM DETOX UNIT TO BE TAKEN TO REHAB UNIT IN STABLE MEDICAL CONDITION. Inpatient Rehab Admission - Initial Determination Are CD services needed?: Yes Free of communicable disease: Yes Not in need of hospitalization: Yes - Rehab Admission Criteria Previous failed treatment: Yes Comorbidities: Yes Patient is meeting Inpatient Rehab admission criteria:: Yes
[2018-02-18] MEDS ORDERED: PT OWN MED DRAWER 7, Y5N ONE (19:13)
[2018-02-18] MEDS: CARVEDILOL 3.125 MG TABLET (FP) PO SCH (21:23)
[2018-02-18] MEDS: CLOPIDOGREL BISULFATE 75 MG TABLET (FP) PO SCH (21:23)
[2018-02-18] MEDS: GABAPENTIN 300 MG CAPSULE (FP) PO SCH (21:23)
[2018-02-18] MEDS: ATORVASTATIN CA 40 MG TABLET (FP) PO SCH (21:24)
[2018-02-18] MEDS ORDERED: MELATONIN 5 MG TABLETS PO PRN (22:00)
[2018-02-18] MEDS: THIAMINE HCL 100 MG TABLET (FP) PO SCH (22:52)
[2018-02-19] MEDS: GABAPENTIN 300 MG CAPSULE (FP) PO SCH ×3 (06:08→22:22)
--- NOTE | 2018-02-19 06:30 | HP ---
Psychiatrist Admission - Data Date of interview: 02/19/18 Admission source: 3N Identifying data: This is the second [facility] admission for this 63 years old single Black male, father of 5 children, unemployed on public assistance, homeless Medical History: Significant for hypertension, dyslipidemia, osteoarthritis, GERD, coronary artery disease (stents x 2)/CABG, cataracts (bilateral), hepatitis C (treated), angina and a history of chronic lumbar pain. Smokes cigarettes 1ppd Psychiatric History: Reports that his first psychiatric contact was during his time in intermediate from [id number]. Claims that he was diagnosed with MDD but refused to be prescribed medication. Reports that he started taking medication in 2005 way after he was released from intermediate. He now receives psychiatric outpatient treatment at [facility] in [facility] and he is prescribed Zoloft 50 mg po daily and Remeron 30 mg po HS. He saw Dr Olsen on 02/14/18 while in detox and was prescribed only Remeron 7.5 mg po HS. Denies history of previous psychiatric hospitalization or suicidal attempt. Physical/Sexual Abuse/Trauma History: Denies history of emotional, physical or sexual abuse as well as DV relationship. Additional Comment: Reports history of multiple previous arrests including 2 felony convictions. Reports being on parole till December 18, 2009 Vital Signs: Vital Signs - 24 hr 02/18/18 02/19/18 02/19/18 22:00 00:30 03:30 Temperature 98.0 F Pulse Rate 66 Respiratory 18 18 18 Rate Blood Pressure 161/81 Allergies/Adverse Reactions: Allergies Allergy/AdvReac Type Severity Reaction Status Date / Time No Known Allergies Allergy Verified 02/13/18 18:42 Date of last physical exam: 02/13/18 Concur with the findings of this exam: Yes - Substance Abuse/Tx History Hx Alcohol Use: Yes Hx Substance Use: Yes Substance Use Type: Alcohol (Started drinking alcohol at age 18, consumes one liter of liquor & a 6pk of beer daily. Last drank on 02/13/18), Cocaine (Started smoking crack cocaine at age 18, consumes one gram daily. Last smoked on 02/13/18 ) Hx Substance Use Treatment: Yes (2 previous inpt detox & one inpt rehab @ [facility]) Mental Status Exam - Mental Status Exam Alert and Oriented to: Time, Place, Person Cognitive Function: Fair Patient Appearance: Well Groomed Mood: Hopeful, Euthymic Affect: Appropriate Speech Pattern: Clear Voice Loudness: Normal Thought Process: Intact, Goal Oriented Thought Disorder: Not Present Hallucinations: Denies Suicidal Ideation: Denies Homicidal Ideation: Denies Insight/Judgement: Fair Sleep: Poorly Appetite: Good Muscle strength/Tone: Normal Gait/Station: Normal Psychiatric Findings - Problem List ([place] 1, 2,3) (1) Alcohol dependence Current Visit: Yes Status: Acute (2) Cocaine dependence Current Visit: No Status: Chronic Qualifiers: Substance use status: uncomplicated Qualified Code(s): F14.20 - Cocaine dependence, uncomplicated (3) Nicotine dependence Current Visit: No Status: Chronic Qualifiers: Nicotine product type: cigarettes Substance use status: uncomplicated Qualified Code(s): F17.210 - Nicotine dependence, cigarettes, uncomplicated (4) MDD (major depressive disorder) Current Visit: Yes Status: Chronic (5) Substance-induced sleep disorder Current Visit: Yes Status: Acute (6) Coronary artery disease Current Visit: No Status: Chronic Qualifiers: Coronary Disease-Associated Artery/Lesion type: unspecified vessel or lesion type [place] vs. transplanted heart: unspecified whether [place] or transplanted heart Associated angina: angina presence unspecified Qualified Code(s): I25.10 - Atherosclerotic heart disease of [place] coronary artery without angina pectoris (7) History of heart artery stent Current Visit: No Status: Chronic (8) GERD (gastroesophageal reflux disease) Current Visit: No Status: Chronic Qualifiers: Esophagitis presence: without esophagitis Qualified Code(s): K21.9 - Gastro -esophageal reflux disease without esophagitis (9) HTN (hypertension) Current Visit: No Status: Chronic Qualifiers: Hypertension type: essential hypertension Qualified Code(s): I10 - Essential (primary) hypertension (10) Hyperlipidemia Current Visit: No Status: Chronic Qualifiers: Hyperlipidemia type: unspecified Qualified Code(s): E78.5 - Hyperlipidemia , unspecified (11) Osteoarthritis Current Visit: Yes Status: Chronic (12) Hepatitis C Current Visit: Yes Status: Suspected - Initial Treatment Plan Initial Treatment Plan: 1) Resume Zoloft 50 mg po daily and Remeron 30 mg po HS. 2) Monitor progress
[2018-02-19] MEDS: CARVEDILOL 3.125 MG TABLET (FP) PO SCH ×2 (09:50→22:22)
[2018-02-19] MEDS ORDERED: PRENATAL VITAMINS W/ FOLIC ACID TABLET (FP) PO SCH (10:00)
[2018-02-19] MEDS ORDERED: ISOSORBIDE MONONITRATE 30 MG TAB.SR.24H (FP) PO SCH (10:00)
[2018-02-19] MEDS ORDERED: PANTOPRAZOLE 20 MG TABLET (FP) PO SCH (10:00)
[2018-02-19] MEDS ORDERED: LISINOPRIL 10 MG TABLET (FP) PO SCH (10:00)
[2018-02-19] MEDS ORDERED: amLODIPine BESYLATE 5 MG TABLET (FP) PO SCH (10:00)
[2018-02-19] MEDS ORDERED: ASPIRIN COATED 81 MG TABLET.EC PO SCH (10:00)
[2018-02-19] MEDS: CLOPIDOGREL BISULFATE 75 MG TABLET (FP) PO SCH (19:12)
[2018-02-19] MEDS ORDERED: MIRTAZAPINE 30 MG TABLET (FP) PO SCH (22:00)
[2018-02-19] MEDS ORDERED: RANITIDINE HCL 150 MG TABLET (FP) PO SCH (22:00)
[2018-02-19] MEDS: THIAMINE HCL 100 MG TABLET (FP) PO SCH (22:22)
[2018-02-19] MEDS: ATORVASTATIN CA 40 MG TABLET (FP) PO SCH (22:22)
[2018-02-19] MEDS ORDERED: NITROGLYCERIN SUBLINGUAL 1/150 0.4 MG TAB SL PRN (22:35)
[2018-02-19 22:56] VITALS: BP 164/92; PULSE 64; TEMP 97.5
--- NOTE | 2018-02-19 23:13 | PN ---
[facility] Progress Note Note: Patient was seen and evaluated in bed with complaint of chest pain not relieved with Nitroglycerin x 2. Patient has a history of sent placement x 2 and heart attack in 2011. He is status post quadruple bypass in 2014. EKG indicates T wave abnormality, consider lateral ischemia. Patient is being transferred to ER for further evaluation. Endorsed to Dr. hCin.
--- NOTE | 2018-02-20 16:05 | EKG ---
Test Reason : Blood Pressure : / mmHG Vent. Rate : 061 BPM Atrial Rate : 061 BPM P-R Int : 144 ms QRS Dur : 094 ms QT Int : 434 ms P-R-T Axes : 025 053 110 degrees QTc Int : 436 ms NORMAL SINUS RHYTHM T WAVE ABNORMALITY, CONSIDER LATERAL ISCHEMIA ABNORMAL ECG WHEN COMPARED WITH ECG OF 14-FEB-2018 11:01, NONSPECIFIC T WAVE ABNORMALITY HAS REPLACED INVERTED T WAVES IN INFERIOR LEADS Confirmed by Maria Valero ([id number]) on 02/20/2018 4:05:13 PM Referred By: Confirmed By:Maria Valero
== END 2018-02-19 23:35 | disposition short-term general hospital (02) | DRG 772 ==
LOC: YASAS 13:24 → Y3W 13:25
PROVIDERS: ADMIT Psychiatry & Neurology Psychiatry; ATTEND Psychiatry & Neurology Psychiatry
PROC: HZ42ZZZ Group Counseling for Substance Abuse Treatment, Cognitive-Behavioral (ICD-10-PCS; principal; 2018-02-18)
DX: F10.20 Alcohol dependence, uncomplicated (principal); F14.20 Cocaine dependence, uncomplicated; F17.210 Nicotine dependence, cigarettes, uncomplicated; F33.9 Major depressive disorder, recurrent, unspecified; F19.282 Other psychoactive substance dependence with psychoactive substance-induced sleep disorder; I10 Essential (primary) hypertension; I25.10 Atherosclerotic heart disease of native coronary artery without angina pectoris; K21.9 Gastro-esophageal reflux disease without esophagitis; E78.5 Hyperlipidemia, unspecified; M19.90 Unspecified osteoarthritis, unspecified site; B18.2 Chronic viral hepatitis C; R07.9 Chest pain, unspecified; Z95.5 Presence of coronary angioplasty implant and graft; Z95.1 Presence of aortocoronary bypass graft
CPT/HCPCS: 93005; 93010

== ENCOUNTER 2018-12-25 08:22 | Inpatient (IN) | payer OTHER ==
[2018-12-25 09:20] VITALS: BMI 27.7
--- NOTE | 2018-12-25 10:03 | HP ---
CIWA Score Nausea/Vomitin-No Nausea/No Vomiting Muscle Tremors: None Anxiety: 1-Mildly Anxious Agitation: 0-Normal Activity Paroxysmal Sweats: No Perspiration Orientation: 0-Oriented Tacttile Disturbances: 0-None Auditory Disturbances: 0-None Visual Disturbances: 0-None Headache: 0-None Present CIWA-Ar Total Score: 1 - Admission Criteria OASAS Guidelines: Admission for Medically Managed Detox: Requires at least one of the followin. CIWA greater than 12 2. Seizures within the past 24 hours 3. Delirium tremens within the past 24 hours 4. Hallucinations within the past 24 hours 5. Acute intervention needed for co occurring medical disorder 6. Acute intervention needed for co occurring psychiatric disorder 7. Severe withdrawal that cannot be handled at a lower level of care (continued vomiting, continued diarrhea, abnormal vital signs) requiring intravenous medication and/or fluids 8. Admission ROS [facility] Allergies/Adverse Reactions: Allergies Allergy/AdvReac Type Severity Reaction Status Date / Time No Known Allergies Allergy Verified 12/25/18 09:00 History of Present Illness: This report was requested by: Wendy Lee | Reference #: [id number] Others' Prescriptions Patient Name: Francisco Flood Date: 1955 Address: [address] [facility] [address] [address] Sex: Male Rx Written Rx Dispensed Drug Quantity Days Supply Prescriber Name 11/12/2018 11/17/2018 suboxone 8 mg-2 mg sl film 90 30 Kristian Madera Patient Name: Francisco Flood Date: 1955 Address: [address] [place] [address] Sex: Male Rx Written Rx Dispensed Drug Quantity Days Supply Prescriber Name 10/29/2018 11/01/2018 suboxone 8 mg-2 mg sl film 28 14 Kristian Madera 09/24/2018 09/29/2018 buprenorphine-naloxone 8-2 mg sl film 28 14 Kristian Madera 09/17/2018 09/20/2018 suboxone 8 mg-2 mg sl film 14 7 Kristian Madera Patient Name: Francisco Flood Date: 1955 Address: [address] [place] [address] Sex: Male Rx Written Rx Dispensed Drug Quantity Days Supply Prescriber Name 10/08/2018 10/14/2018 suboxone 8 mg-2 mg sl film 28 14 Kristian Madera 05/17/2018 05/19/2018 oxycodone-acetaminophen 10-325 mg tab 10 2 Dali Negrete Patient Name: Francisco Flood Date: 1955 Address: [address] [place] [address] Sex: Male Rx Written Rx Dispensed Drug Quantity Days Supply Prescriber Name 06/12/2018 06/12/2018 oxycodone-acetaminophen 7.5-325 mg tablet 10 2 Wade Wellington) Patient Name: Mariam Flood Date: 1955 Address: [address] [place] [address] Sex: Male Rx Written Rx Dispensed Drug Quantity Days Supply Prescriber Name 05/29/2018 06/02/2018 tramadol hcl 50 mg tablet 20 10 Naomi Hi () Patient Name: Francisco Flood Date: 1955 Address: [address] [place] [address] Sex: Male Rx Written Rx Dispensed Drug Quantity Days Supply Prescriber Name 05/17/2018 05/17/2018 oxycodone-acetaminophen 5-325 mg tablet 12 3 Amauri Saldana pt here requesting detox from etoh use , reports completed detox 12/20/18 , reports drinking variable amounts , 3-4 pints , sometimes 1 x 6-pk , daily since dc from detox , latest use yesterday 3 beers " on the way to the half-way " was waiting for admission at this facility and went to half-way when no more beds were available, returned today , current symptoms as above . Denies seizures, + blackouts . pt reports h/o residential tx through December 2017 , then May 2018 [facility], then [facility] through Aug 2018 , then @ [facility] until 2 weeks ago when he left and relapsed , completed detox 5 days ago . reports non- compliance w/ medical appt , was supposed to start PT last week and did not make it . cannabis : " not much " tobacco : 3-4 cigs/day " when I am drinking 1 ppd " cocaine : " it varies 1/2 gr - 1gr /day " crystal meth - claims one-time use , denies IVDU denies other illicits pmhx : CABG x 4 2013 , [place] w/ stenting x 2 2010 , OA , bursitis, chronic pain lb , knee, ankle r , cts mely , latest orthopedic visit October 2018 , next appt DecemberJanuary 2019 . pshx : R hand tendon repair 1986 psych : depression , ptsd current psych @ [facility] . x : homeless , unemployed Exam Limitations: No Limitations - Ebola screening Have you traveled outside of the country in the last 21 days: No Have you had contact with anyone from an Ebola affected area: No - Review of Systems Constitutional: No Symptoms Reported EENT: reports: Other (glasses) Respiratory: reports: No Symptoms reported Cardiac: reports: No Symptoms Reported GI: reports: Diarrhea : reports: No Symptoms Reported Musculoskeletal: reports: See HPI, Back Pain, Joint Pain Integumentary: reports: No Symptoms Reported Neuro: reports: No Symptoms reported Endocrine: reports: No Symptoms Reported Psychiatric: reports: Orientated x3 Patient History - Patient Medical History Hx Anemia: No Hx Asthma: No Hx Chronic Obstructive Pulmonary Disease (COPD): No Hx Cancer: No Hx Cardiac Disorders: Yes Hx Congestive Heart Failure: No Hx Hypertension: Yes Hx Hypercholesterolemia: Yes Hx Pacemaker: No HX Cerebrovascular Accident: No Hx Seizures: No Hx Dementia: No Hx Diabetes: No Hx Gastrointestinal Disorders: Yes Hx Liver Disease: No Hx Genitourinary Disorders: No Hx Sexually Transmitted Disorders: No Hx Renal Disease (ESRD): No Hx Thyroid Disease: No Hx Human Immunodeficiency Virus (HIV): No (last tested aug 2017) Hx Hepatitis C: Yes (treated ) Hx Depression: Yes Hx Suicide Attempt: No Hx Bipolar Disorder: Yes Hx Schizophrenia: No - Patient Surgical History Past Surgical History: Yes Hx Neurologic Surgery: No Hx Cataract Extraction: Yes (2 STENTS 2010) Hx Cardiac Surgery: No Hx Lung Surgery: No Hx Breast Surgery: No Hx Breast Biopsy: No Hx Abdominal Surgery: No Hx Appendectomy: No Hx Cholecystectomy: No Hx Genitourinary Surgery: No Hx Section: No Hx Orthopedic Surgery: No Hx Hysterectomy: No Anesthesia Reaction: No - PPD History Date: 02/15/18 - Smoking Cessation Smoking history: Current every day smoker Have you smoked in the past 12 months: Yes Aproximately how many cigarettes per day: 20 Hx Chewing Tobacco Use: No Initiated information on smoking cessation: No - Substances abused Alcohol Substance route: Oral Frequency: Daily Amount used: 2 of 4 pints Age of first use: 18 Date of last use: 12/24/18 Other Other (specify): crystal methadone Substance route: Smoking Frequency: 1-3 times last 30 days Amount used: 200- 300 hundred Age of first use: 63 Date of last use: 12/23/18 Cocaine Substance route: Inhalation Frequency: 1-3 times last 30 days Amount used: 1 gram Age of first use: 18 Date of last use: 12/22/18 Marijuana/Hashish Substance route: Smoking Frequency: 1-3 times last 30 days Amount used: 2-3 pulls Age of first use: 18 Date of last use: 12/18/18 Admission Physical Exam S - Vital Signs Vital Signs: Vital Signs - 24 hr 12/25/18 12/25/18 09:11 09:25 Temperature 97.5 F L 97.5 F L Pulse Rate 66 66 Respiratory 18 18 Rate Blood Pressure 141/75 141/75 - Physical General Appearance: Yes: No Apparent Distress HEENTM: Yes: EOMI, Normocephalic, Normal Voice Respiratory: Yes: Lungs Clear, Normal Breath Sounds, No Respiratory Distress, No Accessory Muscle Use Cardiology: Yes: Regular Rhythm, Regular Rate, S1, S2 Abdominal: Yes: Non Tender, Soft Musculoskeletal: Yes: Other (slightly limping R) Neurological: Yes: Fully Oriented, Alert, Motor Strength 5/5 Integumentary: Yes: Warm - Diagnostic (1) Alcohol dependence Current Visit: Yes Status: Chronic Qualifiers: Substance use status: in remission Qualified Code(s): F10.21 - Alcohol dependence, in remission (2) Cocaine dependence Current Visit: No Status: Chronic Qualifiers: Substance use status: uncomplicated Qualified Code(s): F14.20 - Cocaine dependence, uncomplicated (3) Nicotine dependence Current Visit: No Status: Chronic Qualifiers: Nicotine product type: cigarettes Substance use status: uncomplicated Qualified Code(s): F17.210 - Nicotine dependence, cigarettes, uncomplicated Breathalyzer - Breathalyzer Breathalyzer: 0 Urine Drug Screen - Test Device Lot number: [id number] Expiration date: 08/28/20 - Control Is test valid?: Yes - Results Drug screen NEGATIVE: No Urine drug screen results: THC-Marijuana, DESIREE-Cocaine, MET-Methamphetamine, BZO- Benzodiazepines Inpatient Rehab Admission - Rehab Decision to Admit Inpatient rehab admission?: Yes - Initial Determination Are CD services needed?: Yes Free of communicable disease: Yes Not in need of hospitalization: Yes - Rehab Admission Criteria Previous failed treatment: No Poor recovery environment: Yes Comorbidities: No Lacks judgement: Yes Patient is meeting Inpatient Rehab admission criteria:: Yes
[2018-12-25] MEDS ORDERED: P-EPHED 60MG/TRIPROLIDI 2.5MG TABLET PO PRN (11:00)
[2018-12-25] MEDS ORDERED: MENTHOL/PHENOL 1 EACH UD MM PRN (11:00)
[2018-12-25] MEDS ORDERED: NICOTINE POLACRILEX 2 MG GUM BC PRN (11:00)
[2018-12-25] MEDS ORDERED: guaiFENesin 200 MG/10 ML 10 ML UNIT-DOSE CUPS PO PRN (11:00)
[2018-12-25] MEDS ORDERED: MAG HYDROX/AL HYDROX/SIMETH 30 ML UNIT-DOSE CUP PO PRN (11:00)
[2018-12-25] MEDS ORDERED: MAGNESIUM CITRATE 300 ML BOTTLE PO PRN (11:00)
[2018-12-25] MEDS: CARVEDILOL 3.125 MG TABLET (FP) PO SCH ×2 (13:27→21:47)
[2018-12-25] MEDS: ASPIRIN COATED 81 MG TABLET.EC PO SCH (13:27)
[2018-12-25] MEDS: ISOSORBIDE MONONITRATE 30 MG TAB.SR.24H (FP) PO SCH (13:28)
[2018-12-25] MEDS: BACITRACIN 15 GM TUBE TOPICAL OINTMENT TP SCH ×2 (13:29→21:51)
[2018-12-25] MEDS: METHYL SALICYLATE/MENTHOL OINT 30 GM TUBE TP SCH ×2 (13:29→21:51)
[2018-12-25 15:08] LABS: BILIRUBIN,TOTAL 0.5 mg/dL (0.2-1); BLOOD UREA NITROGEN 14.2 mg/dL (7-18); CALCIUM 8.8 mg/dL (8.5-10.1); HEMATOCRIT 42.1 % (35.4-49); HEMOGLOBIN 14.4 GM/dL (11.7-16.9); MCH 32.6 pg (25.7-33.7); MCHC 34.2 g/dl (32.0-35.9); MEAN CELL VOLUME 95.4 fl (80-96); MEAN PLT VOLUME 7.3 fl (7.5-11.1); PLATELET COUNT 266 K/MM3 (134-434); POTASSIUM 3.5 mmol/L (3.5-5.1); RBC 4.41 M/mm3 (4.00-5.60); RDW 13.9 % (11.9-15.9); TOT PROT 7.3 g/dl (6.4-8.2)
[2018-12-25 17:13] LABS: PH,URINE 5.5 (5.0-8.0); URINE APPEARANCE CLEAR; URINE BILIRUBIN NEGATIVE (NEGATIVE); URINE COLOR YELLOW; URINE GLUCOSE (UA) NEGATIVE (NEGATIVE); URINE KETONE NEGATIVE (NEGATIVE); URINE LEUK ESTERASE NEGATIVE (NEGATIVE); URINE NITRITE NEGATIVE (NEGATIVE); URINE PROTEIN NEGATIVE (NEGATIVE); URINE UROBILINOGEN 0.2 mg/dL (0.2-1.0)
[2018-12-25] MEDS: THIAMINE HCL 100 MG TABLET (FP) PO SCH (21:47)
[2018-12-25] MEDS: ATORVASTATIN CA 40 MG TABLET (FP) PO SCH (21:47)
[2018-12-25] MEDS: CLOPIDOGREL BISULFATE 75 MG TABLET (FP) PO SCH (21:47)
[2018-12-26] MEDS: ASPIRIN COATED 81 MG TABLET.EC PO SCH (10:02)
[2018-12-26] MEDS: ISOSORBIDE MONONITRATE 30 MG TAB.SR.24H (FP) PO SCH (10:02)
[2018-12-26] MEDS: PRENATAL VITAMINS W/ FOLIC ACID TABLET (FP) PO SCH (10:02)
[2018-12-26] MEDS: LISINOPRIL 20 MG TABLET (FP) PO SCH (10:02)
[2018-12-26] MEDS: CARVEDILOL 3.125 MG TABLET (FP) PO SCH ×2 (10:03→21:25)
[2018-12-26] MEDS: METHYL SALICYLATE/MENTHOL OINT 30 GM TUBE TP SCH ×2 (10:04→21:25)
[2018-12-26] MEDS: BACITRACIN 15 GM TUBE TOPICAL OINTMENT TP SCH ×2 (10:04→21:25)
[2018-12-26] MEDS: ACETAMINOPHEN 325 MG TABLET (FP) PO PRN (10:04)
--- NOTE | 2018-12-26 10:23 | PN ---
[facility] Progress Note Note: Pt would like to have an sha bandage for R ankle. h/o R ankle injury 03/2018. Pt states he would like to have Gabapentin for pain, lipitor and prilosec: ordered. Pt has a cane. Called [facility] in [place] to confirm pts meds. Pt picked these meds up within the last couple of days. Unclear if pt is actually taking these meds listed below . Plavix- 75mg qd Coreg 3.125mg BID Isosorbide ER 30mg qd Naproxen 500mg BID prn Remeron 30mg qd ASA cheweable 81mg qd MVI qd lisinopril 40mg qd lipitor 40mg qd suboxone 8mg/2mg TID, pt states he lost it, admission urine tox- negative for bupe gabapentin 600mg TID last filled 09/2018
--- NOTE | 2018-12-26 10:58 | CONSULT ---
[facility] Psychiatric Consult - Data Date of interview: 12/26/18 Admission source: Self-referred Identifying data: Mr Flood is a 63 years old single Black male, father of 5 children, unemployed receiving SSI, homeless seeking rehab treatment for alcohol , cocaine, methamphetamine and cannabis Substance Abuse History: Reports history of alcohol, cocaine, crystal meth and marijuana use. Refer to addiction counselor's summary for further information Medical History: Significant for multiple co-morbidites including hypertension, osteoarthritis, GERD, coronary artery disease/angina/myocardial infarction, chronic lumbar pain, cataracts (bilateral), history of treatment for hepatitis C and surgeries for stenting x2, CABG. Smokes cigarettes 1 ppd Psychiatric History: Patient was previously seen by program writer on February 19, 2018 while admitted to this facility. He reports that his first psychiatric contact was during his time in long term from [id number]. Claims that he was diagnosed with MDD but refused to be prescribed medication. In 2005, he was started on psychotropic medication by a outpatient psychiatrist at [facility] in [facility] He now receives psychiatric outpatient treatment at [facility] in [facility] and he is prescribed Zoloft 50 mg po daily and Remeron 30 mg po HS. Claims that he ran out of Zoloft but still taking remeron. This is confirmed by verification of external medication history from [facility] where 30 days supply of Remeron prescribed by Dr Silverio Teixeira were filled on . Denies history of previous psychiatric hospitalization or suicidal attempt. At present, reports feeling depressed and sleeping poorly. Requests to resume his psychotropic medications Physical/Sexual Abuse/Trauma History: Denies history of emotional, physical or sexual abuse as well as DV relationship. Additional Comment: Reports history of multiple previous arrests including 2 felony convictions. Reports being on parole till December 19, 2019 Mental Status Exam - Mental Status Exam Alert and Oriented to: Time, Place, Person Cognitive Function: Fair Patient Appearance: Disheveled Mood: Depressed Affect: Appropriate Patient Behavior: Cooperative Speech Pattern: Clear Voice Loudness: Normal Thought Process: Intact, Goal Oriented Hallucinations: Denies Suicidal Ideation: Denies Homicidal Ideation: Denies Insight/Judgement: Fair, Poor Sleep: Poorly Appetite: Good Muscle strength/Tone: Normal Gait/Station: Normal Psychiatric Findings - Problem List ([place] 1, 2,3) (1) MDD (major depressive disorder) Current Visit: No Status: Chronic (2) Substance induced mood disorder Current Visit: Yes Status: Acute (3) Substance-induced sleep disorder Current Visit: No Status: Acute (4) Alcohol dependence Current Visit: Yes Status: Acute Qualifiers: Substance use status: in remission Qualified Code(s): F10.21 - Alcohol dependence, in remission (5) Cocaine dependence Current Visit: No Status: Acute Qualifiers: Substance use status: uncomplicated Qualified Code(s): F14.20 - Cocaine dependence, uncomplicated (6) Methamphetamine abuse Current Visit: Yes Status: Acute (7) Cannabis abuse Current Visit: Yes Status: Acute (8) Nicotine dependence Current Visit: No Status: Chronic Qualifiers: Nicotine product type: cigarettes Substance use status: uncomplicated Qualified Code(s): F17.210 - Nicotine dependence, cigarettes, uncomplicated (9) GERD (gastroesophageal reflux disease) Current Visit: No Status: Chronic Qualifiers: Esophagitis presence: without esophagitis Qualified Code(s): K21.9 - Gastro -esophageal reflux disease without esophagitis (10) HTN (hypertension) Current Visit: No Status: Chronic Qualifiers: Hypertension type: essential hypertension Qualified Code(s): I10 - Essential (primary) hypertension (11) Hyperlipidemia Current Visit: No Status: Chronic Qualifiers: Hyperlipidemia type: unspecified Qualified Code(s): E78.5 - Hyperlipidemia , unspecified (12) Osteoarthritis Current Visit: No Status: Chronic (13) Hepatitis C Current Visit: No Status: Resolved (14) Coronary artery disease Current Visit: No Status: Chronic Qualifiers: Coronary Disease-Associated Artery/Lesion type: unspecified vessel or lesion type [place] vs. transplanted heart: unspecified whether [place] or transplanted heart Associated angina: angina presence unspecified Qualified Code(s): I25.10 - Atherosclerotic heart disease of [place] coronary artery without angina pectoris (15) History of heart artery stent Current Visit: No Status: Resolved (16) S/P CABG (coronary artery bypass graft) Current Visit: Yes Status: Resolved - Initial Treatment Plan Initial Treatment Plan: 1) Continue Remeron 30 mg po hs. 2) Resume Zoloft 50 mg po daily. 3) Continue inpatient rehabilitation
[2018-12-26] MEDS: PANTOPRAZOLE 20 MG TABLET (FP) PO SCH (11:11)
[2018-12-26] MEDS: SERTRALINE HCL 50 MG TABLET (FP) PO SCH (12:11)
[2018-12-26] MEDS: ATORVASTATIN CA 40 MG TABLET (FP) PO SCH (21:25)
[2018-12-26] MEDS: THIAMINE HCL 100 MG TABLET (FP) PO SCH (21:25)
[2018-12-26] MEDS: MIRTAZAPINE 30 MG TABLET (FP) PO SCH (21:25)
[2018-12-26] MEDS: CLOPIDOGREL BISULFATE 75 MG TABLET (FP) PO SCH (21:25)
[2018-12-27] MEDS: PANTOPRAZOLE 20 MG TABLET (FP) PO SCH (09:54)
[2018-12-27] MEDS: ASPIRIN COATED 81 MG TABLET.EC PO SCH (09:54)
[2018-12-27] MEDS: LISINOPRIL 20 MG TABLET (FP) PO SCH (09:54)
[2018-12-27] MEDS: PRENATAL VITAMINS W/ FOLIC ACID TABLET (FP) PO SCH (09:54)
[2018-12-27] MEDS: CARVEDILOL 3.125 MG TABLET (FP) PO SCH ×2 (09:54→21:47)
[2018-12-27] MEDS: ISOSORBIDE MONONITRATE 30 MG TAB.SR.24H (FP) PO SCH (09:55)
[2018-12-27] MEDS: SERTRALINE HCL 50 MG TABLET (FP) PO SCH (09:55)
[2018-12-27] MEDS: BACITRACIN 15 GM TUBE TOPICAL OINTMENT TP SCH ×2 (09:55→21:47)
[2018-12-27] MEDS: METHYL SALICYLATE/MENTHOL OINT 30 GM TUBE TP SCH ×2 (09:55→21:47)
[2018-12-27] MEDS ORDERED: PT OWN MED DRAWER 7, Y5N ONE (19:32)
[2018-12-27] MEDS: THIAMINE HCL 100 MG TABLET (FP) PO SCH (21:47)
[2018-12-27] MEDS: MIRTAZAPINE 30 MG TABLET (FP) PO SCH (21:47)
[2018-12-27] MEDS: ATORVASTATIN CA 40 MG TABLET (FP) PO SCH (21:47)
[2018-12-27] MEDS: CLOPIDOGREL BISULFATE 75 MG TABLET (FP) PO SCH (21:47)
[2018-12-27] MEDS: MELATONIN 5 MG TABLETS PO PRN (21:48)
[2018-12-28] MEDS ORDERED: PT OWN MED DRAWER 7, Y5N ONE (09:28)
[2018-12-28] MEDS: LISINOPRIL 20 MG TABLET (FP) PO SCH (10:04)
[2018-12-28] MEDS: ASPIRIN COATED 81 MG TABLET.EC PO SCH (10:04)
[2018-12-28] MEDS: PANTOPRAZOLE 20 MG TABLET (FP) PO SCH (10:04)
[2018-12-28] MEDS: ISOSORBIDE MONONITRATE 30 MG TAB.SR.24H (FP) PO SCH (10:04)
[2018-12-28] MEDS: PRENATAL VITAMINS W/ FOLIC ACID TABLET (FP) PO SCH (10:04)
[2018-12-28] MEDS: CARVEDILOL 3.125 MG TABLET (FP) PO SCH ×2 (10:04→21:47)
[2018-12-28] MEDS: METHYL SALICYLATE/MENTHOL OINT 30 GM TUBE TP SCH ×2 (10:05→21:48)
[2018-12-28] MEDS: SERTRALINE HCL 50 MG TABLET (FP) PO SCH (10:05)
[2018-12-28] MEDS: BACITRACIN 15 GM TUBE TOPICAL OINTMENT TP SCH ×2 (10:05→21:48)
[2018-12-28] MEDS: ATORVASTATIN CA 40 MG TABLET (FP) PO SCH (21:47)
[2018-12-28] MEDS: CLOPIDOGREL BISULFATE 75 MG TABLET (FP) PO SCH (21:47)
[2018-12-28] MEDS: MIRTAZAPINE 30 MG TABLET (FP) PO SCH (21:47)
[2018-12-28] MEDS: THIAMINE HCL 100 MG TABLET (FP) PO SCH (21:47)
[2018-12-28] MEDS: GABAPENTIN 300 MG CAPSULE (FP) PO PRN (21:50)
[2018-12-28] MEDS: MELATONIN 5 MG TABLETS PO PRN (21:51)
[2018-12-28] MEDS ORDERED: LISINOPRIL 20 MG TABLET (FP) PO ONE (23:18)
[2018-12-29] MEDS: LISINOPRIL 20 MG TABLET (FP) PO SCH (10:07)
[2018-12-29] MEDS: ASPIRIN COATED 81 MG TABLET.EC PO SCH (10:07)
[2018-12-29] MEDS: PRENATAL VITAMINS W/ FOLIC ACID TABLET (FP) PO SCH (10:22)
[2018-12-29] MEDS: CARVEDILOL 3.125 MG TABLET (FP) PO SCH ×2 (10:22→21:30)
[2018-12-29] MEDS: PANTOPRAZOLE 20 MG TABLET (FP) PO SCH (10:22)
[2018-12-29] MEDS: SERTRALINE HCL 50 MG TABLET (FP) PO SCH (10:22)
[2018-12-29] MEDS: ISOSORBIDE MONONITRATE 30 MG TAB.SR.24H (FP) PO SCH (10:22)
[2018-12-29] MEDS: BACITRACIN 15 GM TUBE TOPICAL OINTMENT TP SCH ×2 (10:23→21:33)
[2018-12-29] MEDS: METHYL SALICYLATE/MENTHOL OINT 30 GM TUBE TP SCH ×2 (10:23→21:33)
[2018-12-29] MEDS ORDERED: PT OWN MED DRAWER 7, Y5N ONE ×2 (10:25→21:33)
[2018-12-29] MEDS: ACETAMINOPHEN 325 MG TABLET (FP) PO PRN (10:25)
[2018-12-29] MEDS: GABAPENTIN 300 MG CAPSULE (FP) PO PRN ×2 (14:09→21:31)
[2018-12-29] MEDS: CLOPIDOGREL BISULFATE 75 MG TABLET (FP) PO SCH (21:29)
[2018-12-29] MEDS: THIAMINE HCL 100 MG TABLET (FP) PO SCH (21:29)
[2018-12-29] MEDS: ATORVASTATIN CA 40 MG TABLET (FP) PO SCH (21:29)
[2018-12-29] MEDS: MIRTAZAPINE 30 MG TABLET (FP) PO SCH (21:30)
[2018-12-29] MEDS: MELATONIN 5 MG TABLETS PO PRN (21:30)
[2018-12-30] MEDS ORDERED: cloNIDine HCL 0.1 MG TABLET PO ONE (06:11)
--- NOTE | 2018-12-30 06:12 | PN ---
S Progress Note Note: Patient's blood pressure this morning is B/P 202/103. patient is asymptomatic Vital Signs Temperature 98.1 F 12/30/18 06:07 Pulse Rate 54 L 12/30/18 06:07 Respiratory Rate 18 12/30/18 06:07 Blood Pressure 202/103 H 12/30/18 06:07 O2 Sat by Pulse Oximetry (%) Action: Clonidine 0.1mg tablet oral ordered
[2018-12-30] MEDS: ISOSORBIDE MONONITRATE 30 MG TAB.SR.24H (FP) PO SCH (10:09)
[2018-12-30] MEDS: PRENATAL VITAMINS W/ FOLIC ACID TABLET (FP) PO SCH (10:09)
[2018-12-30] MEDS: LISINOPRIL 20 MG TABLET (FP) PO SCH (10:09)
[2018-12-30] MEDS: ASPIRIN COATED 81 MG TABLET.EC PO SCH (10:09)
[2018-12-30] MEDS: CARVEDILOL 3.125 MG TABLET (FP) PO SCH ×2 (10:10→21:04)
[2018-12-30] MEDS: BACITRACIN 15 GM TUBE TOPICAL OINTMENT TP SCH ×2 (10:10→21:05)
[2018-12-30] MEDS: SERTRALINE HCL 50 MG TABLET (FP) PO SCH (10:10)
[2018-12-30] MEDS: METHYL SALICYLATE/MENTHOL OINT 30 GM TUBE TP SCH ×2 (10:10→21:05)
[2018-12-30] MEDS: PANTOPRAZOLE 20 MG TABLET (FP) PO SCH (10:10)
[2018-12-30] MEDS: GABAPENTIN 300 MG CAPSULE (FP) PO PRN (10:11)
[2018-12-30] MEDS: ATORVASTATIN CA 40 MG TABLET (FP) PO SCH (21:04)
[2018-12-30] MEDS: THIAMINE HCL 100 MG TABLET (FP) PO SCH (21:04)
[2018-12-30] MEDS: CLOPIDOGREL BISULFATE 75 MG TABLET (FP) PO SCH (21:04)
[2018-12-30] MEDS: MIRTAZAPINE 30 MG TABLET (FP) PO SCH (21:04)
[2018-12-30] MEDS: MELATONIN 5 MG TABLETS PO PRN (21:04)
[2018-12-31] MEDS: PANTOPRAZOLE 20 MG TABLET (FP) PO SCH (09:42)
[2018-12-31] MEDS: PRENATAL VITAMINS W/ FOLIC ACID TABLET (FP) PO SCH (09:42)
[2018-12-31] MEDS: METHYL SALICYLATE/MENTHOL OINT 30 GM TUBE TP SCH ×2 (09:43→22:37)
[2018-12-31] MEDS: BACITRACIN 15 GM TUBE TOPICAL OINTMENT TP SCH ×2 (09:43→22:37)
[2018-12-31] MEDS: CARVEDILOL 3.125 MG TABLET (FP) PO SCH ×2 (09:43→21:51)
[2018-12-31] MEDS: SERTRALINE HCL 50 MG TABLET (FP) PO SCH (09:43)
[2018-12-31] MEDS: ISOSORBIDE MONONITRATE 30 MG TAB.SR.24H (FP) PO SCH (09:43)
[2018-12-31] MEDS: LISINOPRIL 20 MG TABLET (FP) PO SCH (09:43)
[2018-12-31] MEDS: ASPIRIN COATED 81 MG TABLET.EC PO SCH (09:43)
[2018-12-31] MEDS: GABAPENTIN 300 MG CAPSULE (FP) PO PRN (09:44)
[2018-12-31] MEDS: CLOPIDOGREL BISULFATE 75 MG TABLET (FP) PO SCH (21:51)
[2018-12-31] MEDS: ATORVASTATIN CA 40 MG TABLET (FP) PO SCH (21:51)
[2018-12-31] MEDS: THIAMINE HCL 100 MG TABLET (FP) PO SCH (21:51)
[2018-12-31] MEDS: MIRTAZAPINE 30 MG TABLET (FP) PO SCH (21:51)
[2018-12-31] MEDS: MELATONIN 5 MG TABLETS PO PRN (21:52)
[2018-12-31] MEDS ORDERED: PT OWN MED DRAWER 7, Y5N ONE (22:40)
[2019-01-01] MEDS ORDERED: amLODIPine BESYLATE 5 MG TABLET (FP) PO SCH ×2 (06:00→10:00)
[2019-01-01] MEDS: PRENATAL VITAMINS W/ FOLIC ACID TABLET (FP) PO SCH (09:01)
[2019-01-01] MEDS: SERTRALINE HCL 50 MG TABLET (FP) PO SCH (09:01)
[2019-01-01] MEDS: LISINOPRIL 20 MG TABLET (FP) PO SCH (09:01)
[2019-01-01] MEDS: ISOSORBIDE MONONITRATE 30 MG TAB.SR.24H (FP) PO SCH (09:01)
[2019-01-01] MEDS: CARVEDILOL 3.125 MG TABLET (FP) PO SCH ×2 (09:01→21:16)
[2019-01-01] MEDS: ASPIRIN COATED 81 MG TABLET.EC PO SCH (09:01)
[2019-01-01] MEDS: PANTOPRAZOLE 20 MG TABLET (FP) PO SCH (09:01)
[2019-01-01] MEDS ORDERED: PT OWN MED DRAWER 7, Y5N ONE (09:02)
[2019-01-01] MEDS: BACITRACIN 15 GM TUBE TOPICAL OINTMENT TP SCH ×2 (09:03→21:18)
[2019-01-01] MEDS: METHYL SALICYLATE/MENTHOL OINT 30 GM TUBE TP SCH ×2 (09:03→21:18)
[2019-01-01] MEDS ORDERED: amLODIPine BESYLATE 5 MG TABLET (FP) PO ONE (09:28)
[2019-01-01] MEDS: ATORVASTATIN CA 40 MG TABLET (FP) PO SCH (21:16)
[2019-01-01] MEDS: MIRTAZAPINE 30 MG TABLET (FP) PO SCH (21:16)
[2019-01-01] MEDS: CLOPIDOGREL BISULFATE 75 MG TABLET (FP) PO SCH (21:16)
[2019-01-01] MEDS: MELATONIN 5 MG TABLETS PO PRN (21:16)
[2019-01-01] MEDS: THIAMINE HCL 100 MG TABLET (FP) PO SCH (21:16)
[2019-01-01] MEDS: GABAPENTIN 300 MG CAPSULE (FP) PO PRN (21:17)
[2019-01-02] MEDS: amLODIPine BESYLATE 5 MG TABLET (FP) PO SCH (06:22)
[2019-01-02] MEDS ORDERED: PT OWN MED DRAWER 7, Y5N ONE (09:02)
[2019-01-02] MEDS: SERTRALINE HCL 50 MG TABLET (FP) PO SCH (09:42)
[2019-01-02] MEDS: CARVEDILOL 3.125 MG TABLET (FP) PO SCH ×2 (09:42→21:16)
[2019-01-02] MEDS: ASPIRIN COATED 81 MG TABLET.EC PO SCH (09:42)
[2019-01-02] MEDS: PRENATAL VITAMINS W/ FOLIC ACID TABLET (FP) PO SCH (09:42)
[2019-01-02] MEDS: PANTOPRAZOLE 20 MG TABLET (FP) PO SCH (09:42)
[2019-01-02] MEDS: ISOSORBIDE MONONITRATE 30 MG TAB.SR.24H (FP) PO SCH (09:43)
[2019-01-02] MEDS: GABAPENTIN 300 MG CAPSULE (FP) PO PRN ×2 (09:43→21:19)
[2019-01-02] MEDS: LISINOPRIL 20 MG TABLET (FP) PO SCH (09:43)
[2019-01-02] MEDS: BACITRACIN 15 GM TUBE TOPICAL OINTMENT TP SCH ×2 (09:45→21:16)
[2019-01-02] MEDS: METHYL SALICYLATE/MENTHOL OINT 30 GM TUBE TP SCH ×2 (09:45→21:16)
[2019-01-02] MEDS: THIAMINE HCL 100 MG TABLET (FP) PO SCH (21:16)
[2019-01-02] MEDS: ATORVASTATIN CA 40 MG TABLET (FP) PO SCH (21:16)
[2019-01-02] MEDS: MELATONIN 5 MG TABLETS PO PRN (21:16)
[2019-01-02] MEDS: CLOPIDOGREL BISULFATE 75 MG TABLET (FP) PO SCH (21:16)
[2019-01-02] MEDS: MIRTAZAPINE 30 MG TABLET (FP) PO SCH (21:16)
[2019-01-03] MEDS: amLODIPine BESYLATE 5 MG TABLET (FP) PO SCH (06:25)
[2019-01-03] MEDS: GABAPENTIN 300 MG CAPSULE (FP) PO PRN ×2 (06:26→21:52)
[2019-01-03] MEDS: ISOSORBIDE MONONITRATE 30 MG TAB.SR.24H (FP) PO SCH (09:02)
[2019-01-03] MEDS ORDERED: PT OWN MED DRAWER 7, Y5N ONE (09:02)
[2019-01-03] MEDS: PRENATAL VITAMINS W/ FOLIC ACID TABLET (FP) PO SCH (09:02)
[2019-01-03] MEDS: LISINOPRIL 20 MG TABLET (FP) PO SCH (09:03)
[2019-01-03] MEDS: CARVEDILOL 3.125 MG TABLET (FP) PO SCH ×2 (09:03→21:52)
[2019-01-03] MEDS: PANTOPRAZOLE 20 MG TABLET (FP) PO SCH (09:03)
[2019-01-03] MEDS: ASPIRIN COATED 81 MG TABLET.EC PO SCH (09:03)
[2019-01-03] MEDS: SERTRALINE HCL 50 MG TABLET (FP) PO SCH (09:03)
[2019-01-03] MEDS: BACITRACIN 15 GM TUBE TOPICAL OINTMENT TP SCH ×2 (09:04→21:54)
[2019-01-03] MEDS: METHYL SALICYLATE/MENTHOL OINT 30 GM TUBE TP SCH ×2 (09:04→21:54)
[2019-01-03] MEDS: CLOPIDOGREL BISULFATE 75 MG TABLET (FP) PO SCH (21:52)
[2019-01-03] MEDS: MAGNESIUM HYDROX 2400MG/30ML ORAL SUSPENSION 30 ML CUP PO PRN (21:52)
[2019-01-03] MEDS: MIRTAZAPINE 30 MG TABLET (FP) PO SCH (21:52)
[2019-01-03] MEDS: ATORVASTATIN CA 40 MG TABLET (FP) PO SCH (21:52)
[2019-01-03] MEDS: MELATONIN 5 MG TABLETS PO PRN (21:52)
[2019-01-03] MEDS: THIAMINE HCL 100 MG TABLET (FP) PO SCH (21:52)
[2019-01-04] MEDS: GABAPENTIN 300 MG CAPSULE (FP) PO PRN ×3 (06:27→21:05)
[2019-01-04] MEDS: amLODIPine BESYLATE 5 MG TABLET (FP) PO SCH (06:27)
[2019-01-04] MEDS: ISOSORBIDE MONONITRATE 30 MG TAB.SR.24H (FP) PO SCH (09:18)
[2019-01-04] MEDS: PRENATAL VITAMINS W/ FOLIC ACID TABLET (FP) PO SCH (09:18)
[2019-01-04] MEDS: ASPIRIN COATED 81 MG TABLET.EC PO SCH (09:18)
[2019-01-04] MEDS: CARVEDILOL 3.125 MG TABLET (FP) PO SCH ×2 (09:18→21:04)
[2019-01-04] MEDS: SERTRALINE HCL 50 MG TABLET (FP) PO SCH (09:18)
[2019-01-04] MEDS: LISINOPRIL 20 MG TABLET (FP) PO SCH (09:18)
[2019-01-04] MEDS: BACITRACIN 15 GM TUBE TOPICAL OINTMENT TP SCH ×2 (09:20→21:06)
[2019-01-04] MEDS: PANTOPRAZOLE 20 MG TABLET (FP) PO SCH (09:20)
[2019-01-04] MEDS: METHYL SALICYLATE/MENTHOL OINT 30 GM TUBE TP SCH ×2 (09:20→21:06)
[2019-01-04] MEDS: MAGNESIUM HYDROX 2400MG/30ML ORAL SUSPENSION 30 ML CUP PO PRN (14:18)
[2019-01-04] MEDS: MIRTAZAPINE 30 MG TABLET (FP) PO SCH (21:04)
[2019-01-04] MEDS: ATORVASTATIN CA 40 MG TABLET (FP) PO SCH (21:04)
[2019-01-04] MEDS: THIAMINE HCL 100 MG TABLET (FP) PO SCH (21:04)
[2019-01-04] MEDS: MELATONIN 5 MG TABLETS PO PRN (21:04)
[2019-01-04] MEDS: CLOPIDOGREL BISULFATE 75 MG TABLET (FP) PO SCH (21:04)
[2019-01-05] MEDS: GABAPENTIN 300 MG CAPSULE (FP) PO PRN (06:23)
[2019-01-05] MEDS: amLODIPine BESYLATE 5 MG TABLET (FP) PO SCH (06:23)
[2019-01-05] MEDS: ISOSORBIDE MONONITRATE 30 MG TAB.SR.24H (FP) PO SCH (10:24)
[2019-01-05] MEDS: PANTOPRAZOLE 20 MG TABLET (FP) PO SCH (10:24)
[2019-01-05] MEDS: SERTRALINE HCL 50 MG TABLET (FP) PO SCH (10:24)
[2019-01-05] MEDS: PRENATAL VITAMINS W/ FOLIC ACID TABLET (FP) PO SCH (10:24)
[2019-01-05] MEDS: CARVEDILOL 3.125 MG TABLET (FP) PO SCH ×2 (10:24→21:14)
[2019-01-05] MEDS: LISINOPRIL 20 MG TABLET (FP) PO SCH (10:24)
[2019-01-05] MEDS: ASPIRIN COATED 81 MG TABLET.EC PO SCH (10:24)
[2019-01-05] MEDS: METHYL SALICYLATE/MENTHOL OINT 30 GM TUBE TP SCH ×2 (10:26→22:40)
[2019-01-05] MEDS: BACITRACIN 15 GM TUBE TOPICAL OINTMENT TP SCH ×2 (10:26→22:41)
--- NOTE | 2019-01-05 11:29 | PN ---
[facility] Progress Note Note: PATIENT SEEN FOR ELEVATED BLOOD PRESSURE. PATIENT DENIES CHEST PAIN, SOB AND DIZZINESS AT THIS TIME. REPORTS HX OF ANGINA, CAD, STENT PLACEMENT X 2 IN 2010 AND QUADRUPLE BYPASS IN 2013. PATIENT STATES HIS IMDUR WAS INCREASED TO 60MG DAILY FROM 30MG WHILE IN [facility] BUT DOES NOT HAVE RECORDS OF ADMISSION. DR. FAYE GREGG AT [facility] [phone] LISTED PCP. Vital Signs Temperature 98.1 F 01/05/19 07:00 Pulse Rate 54 L 01/05/19 07:00 Respiratory Rate 18 01/05/19 07:00 Blood Pressure 176/89 H 01/05/19 07:00 O2 Sat by Pulse Oximetry (%) Laboratory Tests 12/25/18 12/25/18 12/25/18 11:32 11:32 11:32 WBC 7.0 RBC 4.41 Hgb 14.4 Hct 42.1 MCV 95.4 MCH 32.6 MCHC 34.2 RDW 13.9 Plt Count 266 D MPV 7.3 L Sodium 137 Potassium 3.5 Chloride 99 Carbon Dioxide 30 Anion Gap 7 L BUN 14.2 Creatinine 1.0 Est GFR (CKD-EPI)AfAm 93.73 Est GFR (CKD-EPI)NonAf 80.87 Random Glucose 86 Calcium 8.8 Total Bilirubin 0.5 AST 20 ALT 25 Alkaline Phosphatase 81 Total Protein 7.3 Albumin 4.0 Urine Color Urine Appearance Urine pH Ur Specific [place] Urine Protein Urine Glucose (UA) Urine Ketones Urine Blood Urine Nitrite Urine Bilirubin Urine Urobilinogen Ur Leukocyte Esterase RPR Titer HIV 1&2 Antibody Screen Negative HIV P24 Antigen Negative 12/25/18 12/25/18 11:32 15:30 WBC RBC Hgb Hct MCV MCH MCHC RDW Plt Count MPV Sodium Potassium Chloride Carbon Dioxide Anion Gap BUN Creatinine Est GFR (CKD-EPI)AfAm Est GFR (CKD-EPI)NonAf Random Glucose Calcium Total Bilirubin AST ALT Alkaline Phosphatase Total Protein Albumin Urine Color Yellow Urine Appearance Clear Urine pH 5.5 Ur Specific [place] 1.006 L Urine Protein Negative Urine Glucose (UA) Negative Urine Ketones Negative Urine Blood Negative Urine Nitrite Negative Urine Bilirubin Negative Urine Urobilinogen 0.2 Ur Leukocyte Esterase Negative RPR Titer Nonreactive HIV 1&2 Antibody Screen HIV P24 Antigen PE: ALERT AND ORIENTED X 3 SKIN WARM AND DRY +PERRLA, EOMS INTACT BL CAR S1S2, RRR RESP CTA BL NO WHEEZES OR RALES EXT NO VISIBLE TREMORS, AMB AD KASHIF A/P: HTN CAD HX OF S/P STENT PLACEMENT [facility] CALLED-LEFT ON HOLD. REFERRED TO DOUGLAS WING TO FOLLOW UP PHONE CALL FOR MEDICAL RECORDS TO BE FAXED TO UNIT WILL ORDER AMLODIPINE 5MG ONCE IN ADDITION TO MORNING DOSE OF 5MG TO MAKE 10MG TODAY START AMLODIPINE 10MG DAILY IN AM CONTINUE ALL OTHER MEDICATIONS ORDERED MONITOR CLINICALLY F/U ONCE RECORDS FAXED TO UNIT
[2019-01-05] MEDS ORDERED: amLODIPine BESYLATE 5 MG TABLET (FP) PO ONE (12:45)
[2019-01-05] MEDS: GABAPENTIN 300 MG CAPSULE (FP) PO SCH ×2 (13:45→21:14)
[2019-01-05] MEDS: THIAMINE HCL 100 MG TABLET (FP) PO SCH (21:13)
[2019-01-05] MEDS: MIRTAZAPINE 30 MG TABLET (FP) PO SCH (21:14)
[2019-01-05] MEDS: ATORVASTATIN CA 40 MG TABLET (FP) PO SCH (21:14)
[2019-01-05] MEDS: CLOPIDOGREL BISULFATE 75 MG TABLET (FP) PO SCH (21:14)
[2019-01-05] MEDS: MELATONIN 5 MG TABLETS PO PRN (21:15)
[2019-01-06] MEDS: GABAPENTIN 300 MG CAPSULE (FP) PO SCH ×3 (06:34→21:03)
[2019-01-06] MEDS: amLODIPine BESYLATE 10 MG TABLET (FP) PO SCH (06:34)
[2019-01-06] MEDS ORDERED: PT OWN MED DRAWER 7, Y5N ONE (09:35)
[2019-01-06] MEDS: METHYL SALICYLATE/MENTHOL OINT 30 GM TUBE TP SCH ×2 (09:48→21:02)
[2019-01-06] MEDS: ASPIRIN COATED 81 MG TABLET.EC PO SCH (09:48)
[2019-01-06] MEDS: PANTOPRAZOLE 20 MG TABLET (FP) PO SCH (09:48)
[2019-01-06] MEDS: BACITRACIN 15 GM TUBE TOPICAL OINTMENT TP SCH ×2 (09:48→21:01)
[2019-01-06] MEDS: PRENATAL VITAMINS W/ FOLIC ACID TABLET (FP) PO SCH (09:48)
[2019-01-06] MEDS: SERTRALINE HCL 50 MG TABLET (FP) PO SCH (09:48)
[2019-01-06] MEDS: LISINOPRIL 20 MG TABLET (FP) PO SCH (09:49)
[2019-01-06] MEDS: ISOSORBIDE MONONITRATE 30 MG TAB.SR.24H (FP) PO SCH (09:49)
[2019-01-06] MEDS: CARVEDILOL 3.125 MG TABLET (FP) PO SCH ×2 (09:49→21:02)
[2019-01-06] MEDS: THIAMINE HCL 100 MG TABLET (FP) PO SCH (21:01)
[2019-01-06] MEDS: ATORVASTATIN CA 40 MG TABLET (FP) PO SCH (21:02)
[2019-01-06] MEDS: MIRTAZAPINE 30 MG TABLET (FP) PO SCH (21:02)
[2019-01-06] MEDS: CLOPIDOGREL BISULFATE 75 MG TABLET (FP) PO SCH (21:02)
[2019-01-06] MEDS: MELATONIN 5 MG TABLETS PO PRN (21:03)
[2019-01-07] MEDS: GABAPENTIN 300 MG CAPSULE (FP) PO SCH ×3 (07:10→22:28)
[2019-01-07] MEDS: amLODIPine BESYLATE 10 MG TABLET (FP) PO SCH (07:10)
[2019-01-07] MEDS: BACITRACIN 15 GM TUBE TOPICAL OINTMENT TP SCH ×2 (10:15→22:28)
[2019-01-07] MEDS: PRENATAL VITAMINS W/ FOLIC ACID TABLET (FP) PO SCH (10:15)
[2019-01-07] MEDS: PANTOPRAZOLE 20 MG TABLET (FP) PO SCH (10:16)
[2019-01-07] MEDS: CARVEDILOL 3.125 MG TABLET (FP) PO SCH ×2 (10:16→22:27)
[2019-01-07] MEDS: SERTRALINE HCL 50 MG TABLET (FP) PO SCH (10:16)
[2019-01-07] MEDS: LISINOPRIL 20 MG TABLET (FP) PO SCH (10:16)
[2019-01-07] MEDS: ASPIRIN COATED 81 MG TABLET.EC PO SCH (10:16)
[2019-01-07] MEDS: METHYL SALICYLATE/MENTHOL OINT 30 GM TUBE TP SCH ×2 (10:17→22:28)
[2019-01-07] MEDS: ISOSORBIDE MONONITRATE 30 MG TAB.SR.24H (FP) PO SCH (14:22)
[2019-01-07] MEDS: CLOPIDOGREL BISULFATE 75 MG TABLET (FP) PO SCH (22:27)
[2019-01-07] MEDS: THIAMINE HCL 100 MG TABLET (FP) PO SCH (22:27)
[2019-01-07] MEDS: MIRTAZAPINE 30 MG TABLET (FP) PO SCH (22:27)
[2019-01-07] MEDS: MELATONIN 5 MG TABLETS PO PRN (22:28)
[2019-01-07] MEDS: ATORVASTATIN CA 40 MG TABLET (FP) PO SCH (22:28)
[2019-01-08] MEDS: amLODIPine BESYLATE 10 MG TABLET (FP) PO SCH (06:12)
[2019-01-08] MEDS: GABAPENTIN 300 MG CAPSULE (FP) PO SCH ×3 (06:13→21:16)
[2019-01-08] MEDS: CARVEDILOL 3.125 MG TABLET (FP) PO SCH ×2 (09:48→21:16)
[2019-01-08] MEDS: ISOSORBIDE MONONITRATE 30 MG TAB.SR.24H (FP) PO SCH (09:48)
[2019-01-08] MEDS: LISINOPRIL 20 MG TABLET (FP) PO SCH (09:48)
[2019-01-08] MEDS: METHYL SALICYLATE/MENTHOL OINT 30 GM TUBE TP SCH ×2 (09:48→21:18)
[2019-01-08] MEDS: SERTRALINE HCL 50 MG TABLET (FP) PO SCH (09:48)
[2019-01-08] MEDS: ASPIRIN COATED 81 MG TABLET.EC PO SCH (09:48)
[2019-01-08] MEDS: PRENATAL VITAMINS W/ FOLIC ACID TABLET (FP) PO SCH (09:48)
[2019-01-08] MEDS: PANTOPRAZOLE 20 MG TABLET (FP) PO SCH (09:48)
[2019-01-08] MEDS: BACITRACIN 15 GM TUBE TOPICAL OINTMENT TP SCH ×2 (09:50→22:19)
--- NOTE | 2019-01-08 10:29 | PN ---
[facility] Progress Note (SOAP) Subjective: BP remains elevated. Medication list faxed from pharmacy. Patient stated that PCP planned to increase Imdur to 60 mg. This is not indicated on medication list. No c/ dizziness, chest pain SOB. Objective: A+Ox3, no neurological deficits noted heart sounds regular S1S2 audible, lungs clear, skin warn and dry, 01/08/19 10:27 Vital Signs (72 hours) 01/05/19 01/06/19 01/06/19 20:50 00:30 03:30 Temperature Pulse Rate 60 Respiratory 18 18 18 Rate Blood Pressure 153/77 01/06/19 01/06/19 01/07/19 07:23 22:00 00:30 Temperature 97.4 F L 97.4 F L Pulse Rate 53 L 66 Respiratory 18 18 18 Rate Blood Pressure 160/86 161/76 01/07/19 01/07/19 01/07/19 03:30 07:10 09:12 Temperature 96.9 F L Pulse Rate 56 L 62 Respiratory 18 18 18 Rate Blood Pressure 156/83 166/82 01/07/19 01/08/19 01/08/19 20:45 00:30 03:30 Temperature Pulse Rate 62 Respiratory 18 18 18 Rate Blood Pressure 159/75 01/08/19 07:02 Temperature 97.9 F Pulse Rate 59 L Respiratory 18 Rate Blood Pressure 161/81 Assessment: HTN 01/08/19 10:28 Plan: Will increase imdur based on consistently elevated BP, continue to monitor.
--- NOTE | 2019-01-08 10:39 | PN ---
S Progress Note (SOAP) Subjective: Patient c/o lower back pain and right ankle pain. Objective: Right ankle: no swelling or discoloration noted. Patient unable to bear full weight on ankle, needs cane. Ambulates with hesitancy, favoring right ankle. YUNIOR bandage was order, but patient was not using. BACK: spine aligned. Tenderness on palpation of lower back. 01/08/19 10:34 Assessment: Hx of Right ankle injury, Chronic lower back pain 01/08/19 10:36 Plan: Encouraged client to use YUNIOR bandage. Ordered lidoderm patch during the day and colt-wang at night after patch is removed. Encouraged patient to take tylenol as needed. Naprosyn or Ibuprofen not ordered because of interaction with Plavix.
[2019-01-08] MEDS: LIDOCAINE 5% TOPICAL PATCH TP SCH (10:52)
[2019-01-08] MEDS: THIAMINE HCL 100 MG TABLET (FP) PO SCH (21:16)
[2019-01-08] MEDS: MIRTAZAPINE 30 MG TABLET (FP) PO SCH (21:16)
[2019-01-08] MEDS: CLOPIDOGREL BISULFATE 75 MG TABLET (FP) PO SCH (21:16)
[2019-01-08] MEDS: MELATONIN 5 MG TABLETS PO PRN (21:16)
[2019-01-08] MEDS: ATORVASTATIN CA 40 MG TABLET (FP) PO SCH (21:16)
[2019-01-08] MEDS: ACETAMINOPHEN 325 MG TABLET (FP) PO PRN (21:18)
[2019-01-08] MEDS ORDERED: METHYL SALICYLATE/MENTHOL OINT 30 GM TUBE TP SCH (22:00)
[2019-01-08] MEDS: LIDOCAINE PATCH REMOVAL MC SCH (22:19)
[2019-01-09] MEDS: amLODIPine BESYLATE 10 MG TABLET (FP) PO SCH (06:23)
[2019-01-09] MEDS: GABAPENTIN 300 MG CAPSULE (FP) PO SCH ×3 (06:23→22:04)
[2019-01-09] MEDS: PRENATAL VITAMINS W/ FOLIC ACID TABLET (FP) PO SCH (09:35)
[2019-01-09] MEDS: LIDOCAINE 5% TOPICAL PATCH TP SCH (09:35)
[2019-01-09] MEDS: CARVEDILOL 3.125 MG TABLET (FP) PO SCH ×2 (09:36→22:05)
[2019-01-09] MEDS: ASPIRIN COATED 81 MG TABLET.EC PO SCH (09:36)
[2019-01-09] MEDS: SERTRALINE HCL 50 MG TABLET (FP) PO SCH (09:36)
[2019-01-09] MEDS: LISINOPRIL 20 MG TABLET (FP) PO SCH (09:36)
[2019-01-09] MEDS: METHYL SALICYLATE/MENTHOL OINT 30 GM TUBE TP SCH (09:38)
[2019-01-09] MEDS: BACITRACIN 15 GM TUBE TOPICAL OINTMENT TP SCH ×2 (09:38→22:05)
[2019-01-09] MEDS: ISOSORBIDE MONONITRATE 60 MG TAB.SR.24H (FP) PO SCH (10:45)
[2019-01-09] MEDS: PANTOPRAZOLE 20 MG TABLET (FP) PO SCH (10:45)
[2019-01-09] MEDS: CLOPIDOGREL BISULFATE 75 MG TABLET (FP) PO SCH (22:04)
[2019-01-09] MEDS: ATORVASTATIN CA 40 MG TABLET (FP) PO SCH (22:04)
[2019-01-09] MEDS: THIAMINE HCL 100 MG TABLET (FP) PO SCH (22:04)
[2019-01-09] MEDS: MIRTAZAPINE 30 MG TABLET (FP) PO SCH (22:04)
[2019-01-09] MEDS: LIDOCAINE PATCH REMOVAL MC SCH (22:05)
[2019-01-09] MEDS: MELATONIN 5 MG TABLETS PO PRN (22:06)
[2019-01-10] MEDS: amLODIPine BESYLATE 10 MG TABLET (FP) PO SCH (06:46)
[2019-01-10] MEDS: GABAPENTIN 300 MG CAPSULE (FP) PO SCH ×3 (06:46→21:01)
[2019-01-10] MEDS: PRENATAL VITAMINS W/ FOLIC ACID TABLET (FP) PO SCH (10:47)
[2019-01-10] MEDS: CARVEDILOL 3.125 MG TABLET (FP) PO SCH ×2 (10:48→21:01)
[2019-01-10] MEDS: ASPIRIN COATED 81 MG TABLET.EC PO SCH (10:48)
[2019-01-10] MEDS: PANTOPRAZOLE 20 MG TABLET (FP) PO SCH (10:48)
[2019-01-10] MEDS: METHYL SALICYLATE/MENTHOL OINT 30 GM TUBE TP SCH (10:49)
[2019-01-10] MEDS: LISINOPRIL 20 MG TABLET (FP) PO SCH (10:49)
[2019-01-10] MEDS: LIDOCAINE 5% TOPICAL PATCH TP SCH (10:49)
[2019-01-10] MEDS: BACITRACIN 15 GM TUBE TOPICAL OINTMENT TP SCH ×2 (10:49→21:01)
[2019-01-10] MEDS: SERTRALINE HCL 50 MG TABLET (FP) PO SCH (10:50)
[2019-01-10] MEDS: ISOSORBIDE MONONITRATE 60 MG TAB.SR.24H (FP) PO SCH (10:50)
[2019-01-10] MEDS: ACETAMINOPHEN 325 MG TABLET (FP) PO PRN (10:51)
[2019-01-10] MEDS ORDERED: PT OWN MED DRAWER 7, Y5N ONE (11:05)
[2019-01-10] MEDS: ATORVASTATIN CA 40 MG TABLET (FP) PO SCH (21:01)
[2019-01-10] MEDS: THIAMINE HCL 100 MG TABLET (FP) PO SCH (21:01)
[2019-01-10] MEDS: CLOPIDOGREL BISULFATE 75 MG TABLET (FP) PO SCH (21:01)
[2019-01-10] MEDS: MIRTAZAPINE 30 MG TABLET (FP) PO SCH (21:01)
[2019-01-10] MEDS: MELATONIN 5 MG TABLETS PO PRN (21:03)
[2019-01-10] MEDS: LIDOCAINE PATCH REMOVAL MC SCH (21:04)
[2019-01-11] MEDS: GABAPENTIN 300 MG CAPSULE (FP) PO SCH ×3 (06:19→22:45)
[2019-01-11] MEDS: amLODIPine BESYLATE 10 MG TABLET (FP) PO SCH (06:19)
[2019-01-11] MEDS: METHYL SALICYLATE/MENTHOL OINT 30 GM TUBE TP SCH (10:30)
[2019-01-11] MEDS: BACITRACIN 15 GM TUBE TOPICAL OINTMENT TP SCH ×2 (10:30→22:44)
[2019-01-11] MEDS: CARVEDILOL 3.125 MG TABLET (FP) PO SCH ×2 (10:31→22:44)
[2019-01-11] MEDS: PRENATAL VITAMINS W/ FOLIC ACID TABLET (FP) PO SCH (10:31)
[2019-01-11] MEDS: ISOSORBIDE MONONITRATE 60 MG TAB.SR.24H (FP) PO SCH (10:31)
[2019-01-11] MEDS: LISINOPRIL 20 MG TABLET (FP) PO SCH (10:31)
[2019-01-11] MEDS: SERTRALINE HCL 50 MG TABLET (FP) PO SCH (10:31)
[2019-01-11] MEDS: ASPIRIN COATED 81 MG TABLET.EC PO SCH (10:31)
[2019-01-11] MEDS: PANTOPRAZOLE 20 MG TABLET (FP) PO SCH (10:31)
[2019-01-11] MEDS: LIDOCAINE 5% TOPICAL PATCH TP SCH (10:32)
[2019-01-11] MEDS: LIDOCAINE PATCH REMOVAL MC SCH (22:44)
[2019-01-11] MEDS: CLOPIDOGREL BISULFATE 75 MG TABLET (FP) PO SCH (22:44)
[2019-01-11] MEDS: THIAMINE HCL 100 MG TABLET (FP) PO SCH (22:44)
[2019-01-11] MEDS: MELATONIN 5 MG TABLETS PO PRN (22:45)
[2019-01-11] MEDS: MIRTAZAPINE 30 MG TABLET (FP) PO SCH (22:45)
[2019-01-11] MEDS: ATORVASTATIN CA 40 MG TABLET (FP) PO SCH (22:45)
[2019-01-11] MEDS ORDERED: PT OWN MED DRAWER 7, Y5N ONE (22:48)
[2019-01-12] MEDS: amLODIPine BESYLATE 10 MG TABLET (FP) PO SCH (06:40)
[2019-01-12] MEDS: GABAPENTIN 300 MG CAPSULE (FP) PO SCH ×3 (06:40→21:01)
[2019-01-12] MEDS: PRENATAL VITAMINS W/ FOLIC ACID TABLET (FP) PO SCH (09:38)
[2019-01-12] MEDS: ISOSORBIDE MONONITRATE 60 MG TAB.SR.24H (FP) PO SCH (09:38)
[2019-01-12] MEDS: CARVEDILOL 3.125 MG TABLET (FP) PO SCH ×2 (09:38→21:00)
[2019-01-12] MEDS: LISINOPRIL 20 MG TABLET (FP) PO SCH (09:38)
[2019-01-12] MEDS: ASPIRIN COATED 81 MG TABLET.EC PO SCH (09:39)
[2019-01-12] MEDS: LIDOCAINE 5% TOPICAL PATCH TP SCH (09:39)
[2019-01-12] MEDS: PANTOPRAZOLE 20 MG TABLET (FP) PO SCH (09:39)
[2019-01-12] MEDS: SERTRALINE HCL 50 MG TABLET (FP) PO SCH (09:41)
[2019-01-12] MEDS: METHYL SALICYLATE/MENTHOL OINT 30 GM TUBE TP SCH (10:38)
[2019-01-12] MEDS: BACITRACIN 15 GM TUBE TOPICAL OINTMENT TP SCH ×2 (10:38→21:49)
[2019-01-12] MEDS: ATORVASTATIN CA 40 MG TABLET (FP) PO SCH (21:00)
[2019-01-12] MEDS: CLOPIDOGREL BISULFATE 75 MG TABLET (FP) PO SCH (21:00)
[2019-01-12] MEDS: THIAMINE HCL 100 MG TABLET (FP) PO SCH (21:00)
[2019-01-12] MEDS: MIRTAZAPINE 30 MG TABLET (FP) PO SCH (21:01)
[2019-01-12] MEDS: MELATONIN 5 MG TABLETS PO PRN (21:03)
[2019-01-12] MEDS: LIDOCAINE PATCH REMOVAL MC SCH (21:03)
[2019-01-13] MEDS: GABAPENTIN 300 MG CAPSULE (FP) PO SCH ×3 (06:29→22:16)
[2019-01-13] MEDS: amLODIPine BESYLATE 10 MG TABLET (FP) PO SCH (06:29)
[2019-01-13] MEDS ORDERED: PT OWN MED DRAWER 7, Y5N ONE ×2 (09:04→09:50)
[2019-01-13] MEDS: PRENATAL VITAMINS W/ FOLIC ACID TABLET (FP) PO SCH (09:48)
[2019-01-13] MEDS: LISINOPRIL 20 MG TABLET (FP) PO SCH (09:48)
[2019-01-13] MEDS: ASPIRIN COATED 81 MG TABLET.EC PO SCH (09:48)
[2019-01-13] MEDS: SERTRALINE HCL 50 MG TABLET (FP) PO SCH (09:48)
[2019-01-13] MEDS: CARVEDILOL 3.125 MG TABLET (FP) PO SCH ×2 (09:48→22:56)
[2019-01-13] MEDS: ISOSORBIDE MONONITRATE 60 MG TAB.SR.24H (FP) PO SCH (09:48)
[2019-01-13] MEDS: PANTOPRAZOLE 20 MG TABLET (FP) PO SCH (09:49)
[2019-01-13] MEDS: BACITRACIN 15 GM TUBE TOPICAL OINTMENT TP SCH ×2 (09:49→22:57)
[2019-01-13] MEDS: METHYL SALICYLATE/MENTHOL OINT 30 GM TUBE TP SCH (09:50)
[2019-01-13] MEDS: LIDOCAINE 5% TOPICAL PATCH TP SCH (09:50)
[2019-01-13] MEDS: LIDOCAINE PATCH REMOVAL MC SCH (22:16)
[2019-01-13] MEDS: ATORVASTATIN CA 40 MG TABLET (FP) PO SCH (22:16)
[2019-01-13] MEDS: MIRTAZAPINE 30 MG TABLET (FP) PO SCH (22:16)
[2019-01-13] MEDS: CLOPIDOGREL BISULFATE 75 MG TABLET (FP) PO SCH (22:16)
[2019-01-13] MEDS: MELATONIN 5 MG TABLETS PO PRN (22:19)
[2019-01-13] MEDS: THIAMINE HCL 100 MG TABLET (FP) PO SCH (22:57)
[2019-01-14] MEDS: GABAPENTIN 300 MG CAPSULE (FP) PO SCH ×3 (06:39→21:59)
[2019-01-14] MEDS: amLODIPine BESYLATE 10 MG TABLET (FP) PO SCH (06:39)
[2019-01-14] MEDS: LISINOPRIL 20 MG TABLET (FP) PO SCH (09:46)
[2019-01-14] MEDS: CARVEDILOL 3.125 MG TABLET (FP) PO SCH ×2 (09:46→21:59)
[2019-01-14] MEDS: PANTOPRAZOLE 20 MG TABLET (FP) PO SCH (09:46)
[2019-01-14] MEDS: ASPIRIN COATED 81 MG TABLET.EC PO SCH (09:46)
[2019-01-14] MEDS: SERTRALINE HCL 50 MG TABLET (FP) PO SCH (09:46)
[2019-01-14] MEDS: PRENATAL VITAMINS W/ FOLIC ACID TABLET (FP) PO SCH (09:46)
[2019-01-14] MEDS: ISOSORBIDE MONONITRATE 60 MG TAB.SR.24H (FP) PO SCH (09:46)
[2019-01-14] MEDS: LIDOCAINE 5% TOPICAL PATCH TP SCH (09:46)
[2019-01-14] MEDS: BACITRACIN 15 GM TUBE TOPICAL OINTMENT TP SCH ×2 (09:47→22:00)
[2019-01-14] MEDS: METHYL SALICYLATE/MENTHOL OINT 30 GM TUBE TP SCH (09:47)
[2019-01-14] MEDS ORDERED: MAGNESIUM SULFATE 16 OZ CRYSTALS TP ONE (17:00)
[2019-01-14] MEDS ORDERED: PT OWN MED DRAWER 7, Y5N ONE (20:53)
[2019-01-14] MEDS: CLOPIDOGREL BISULFATE 75 MG TABLET (FP) PO SCH (21:59)
[2019-01-14] MEDS: ATORVASTATIN CA 40 MG TABLET (FP) PO SCH (21:59)
[2019-01-14] MEDS: MELATONIN 5 MG TABLETS PO PRN (21:59)
[2019-01-14] MEDS: MIRTAZAPINE 30 MG TABLET (FP) PO SCH (21:59)
[2019-01-14] MEDS: THIAMINE HCL 100 MG TABLET (FP) PO SCH (21:59)
[2019-01-14] MEDS: MINERAL OIL/PETROLAT/WATER TOPICAL CREAM 113 GM JAR TP SCH (22:00)
[2019-01-14] MEDS: LIDOCAINE PATCH REMOVAL MC SCH (22:00)
[2019-01-15] MEDS: amLODIPine BESYLATE 10 MG TABLET (FP) PO SCH (06:27)
[2019-01-15] MEDS: GABAPENTIN 300 MG CAPSULE (FP) PO SCH ×3 (06:27→22:34)
[2019-01-15] MEDS ORDERED: PT OWN MED DRAWER 7, Y5N ONE ×2 (09:25→13:39)
[2019-01-15] MEDS: ISOSORBIDE MONONITRATE 60 MG TAB.SR.24H (FP) PO SCH (09:39)
[2019-01-15] MEDS: ASPIRIN COATED 81 MG TABLET.EC PO SCH (09:39)
[2019-01-15] MEDS: LISINOPRIL 20 MG TABLET (FP) PO SCH (09:39)
[2019-01-15] MEDS: PANTOPRAZOLE 20 MG TABLET (FP) PO SCH (09:39)
[2019-01-15] MEDS: SERTRALINE HCL 50 MG TABLET (FP) PO SCH (09:39)
[2019-01-15] MEDS: CARVEDILOL 3.125 MG TABLET (FP) PO SCH ×2 (09:39→22:34)
[2019-01-15] MEDS: PRENATAL VITAMINS W/ FOLIC ACID TABLET (FP) PO SCH (09:40)
[2019-01-15] MEDS: LIDOCAINE 5% TOPICAL PATCH TP SCH (09:40)
[2019-01-15] MEDS: METHYL SALICYLATE/MENTHOL OINT 30 GM TUBE TP SCH (09:41)
[2019-01-15] MEDS: BACITRACIN 15 GM TUBE TOPICAL OINTMENT TP SCH ×2 (09:41→22:38)
[2019-01-15] MEDS: MINERAL OIL/PETROLAT/WATER TOPICAL CREAM 113 GM JAR TP SCH ×2 (13:17→22:38)
[2019-01-15] MEDS: MIRTAZAPINE 30 MG TABLET (FP) PO SCH (22:34)
[2019-01-15] MEDS: THIAMINE HCL 100 MG TABLET (FP) PO SCH (22:34)
[2019-01-15] MEDS: CLOPIDOGREL BISULFATE 75 MG TABLET (FP) PO SCH (22:34)
[2019-01-15] MEDS: ATORVASTATIN CA 40 MG TABLET (FP) PO SCH (22:34)
[2019-01-15] MEDS: MELATONIN 5 MG TABLETS PO PRN (22:37)
[2019-01-15] MEDS: LIDOCAINE PATCH REMOVAL MC SCH (23:18)
[2019-01-16] MEDS: amLODIPine BESYLATE 10 MG TABLET (FP) PO SCH (06:26)
[2019-01-16] MEDS: GABAPENTIN 300 MG CAPSULE (FP) PO SCH ×3 (06:26→21:05)
[2019-01-16] MEDS: LIDOCAINE 5% TOPICAL PATCH TP SCH (09:47)
[2019-01-16] MEDS: ASPIRIN COATED 81 MG TABLET.EC PO SCH (09:47)
[2019-01-16] MEDS: SERTRALINE HCL 50 MG TABLET (FP) PO SCH (09:47)
[2019-01-16] MEDS: PRENATAL VITAMINS W/ FOLIC ACID TABLET (FP) PO SCH (09:47)
[2019-01-16] MEDS: PANTOPRAZOLE 20 MG TABLET (FP) PO SCH (09:47)
[2019-01-16] MEDS: LISINOPRIL 20 MG TABLET (FP) PO SCH (09:47)
[2019-01-16] MEDS: METHYL SALICYLATE/MENTHOL OINT 30 GM TUBE TP SCH (09:48)
[2019-01-16] MEDS: MINERAL OIL/PETROLAT/WATER TOPICAL CREAM 113 GM JAR TP SCH ×2 (09:48→21:06)
[2019-01-16] MEDS: ISOSORBIDE MONONITRATE 60 MG TAB.SR.24H (FP) PO SCH (09:48)
[2019-01-16] MEDS: BACITRACIN 15 GM TUBE TOPICAL OINTMENT TP SCH ×2 (09:51→21:05)
[2019-01-16] MEDS: CARVEDILOL 3.125 MG TABLET (FP) PO SCH ×2 (11:01→21:06)
--- NOTE | 2019-01-16 19:12 | PN ---
[facility] Progress Note Note: Patient c/o fungal rash and itching to feet. Bilateral toes noted with onchomycotic nails and dry,flaky rash in between toes. Will order Tinactin cream to feet and monitor clinically. Laboratory Tests 12/25/18 12/25/18 12/25/18 11:32 11:32 11:32 WBC 7.0 RBC 4.41 Hgb 14.4 Hct 42.1 MCV 95.4 MCH 32.6 MCHC 34.2 RDW 13.9 Plt Count 266 D MPV 7.3 L Sodium 137 Potassium 3.5 Chloride 99 Carbon Dioxide 30 Anion Gap 7 L BUN 14.2 Creatinine 1.0 Est GFR (CKD-EPI)AfAm 93.73 Est GFR (CKD-EPI)NonAf 80.87 Random Glucose 86 Calcium 8.8 Total Bilirubin 0.5 AST 20 ALT 25 Alkaline Phosphatase 81 Total Protein 7.3 Albumin 4.0 Urine Color Urine Appearance Urine pH Ur Specific [place] Urine Protein Urine Glucose (UA) Urine Ketones Urine Blood Urine Nitrite Urine Bilirubin Urine Urobilinogen Ur Leukocyte Esterase RPR Titer HIV 1&2 Antibody Screen Negative HIV P24 Antigen Negative 12/25/18 12/25/18 11:32 15:30 WBC RBC Hgb Hct MCV MCH MCHC RDW Plt Count MPV Sodium Potassium Chloride Carbon Dioxide Anion Gap BUN Creatinine Est GFR (CKD-EPI)AfAm Est GFR (CKD-EPI)NonAf Random Glucose Calcium Total Bilirubin AST ALT Alkaline Phosphatase Total Protein Albumin Urine Color Yellow Urine Appearance Clear Urine pH 5.5 Ur Specific [place] 1.006 L Urine Protein Negative Urine Glucose (UA) Negative Urine Ketones Negative Urine Blood Negative Urine Nitrite Negative Urine Bilirubin Negative Urine Urobilinogen 0.2 Ur Leukocyte Esterase Negative RPR Titer Nonreactive HIV 1&2 Antibody Screen HIV P24 Antigen Vital Signs Temperature 97.5 F L 01/16/19 07:21 Pulse Rate 60 01/16/19 07:21 Respiratory Rate 18 01/16/19 07:21 Blood Pressure 110/73 01/16/19 07:21 O2 Sat by Pulse Oximetry (%)
[2019-01-16] MEDS: ATORVASTATIN CA 40 MG TABLET (FP) PO SCH (21:05)
[2019-01-16] MEDS: THIAMINE HCL 100 MG TABLET (FP) PO SCH (21:05)
[2019-01-16] MEDS: MIRTAZAPINE 30 MG TABLET (FP) PO SCH (21:06)
[2019-01-16] MEDS: CLOPIDOGREL BISULFATE 75 MG TABLET (FP) PO SCH (21:06)
[2019-01-16] MEDS: LIDOCAINE PATCH REMOVAL MC SCH (21:06)
[2019-01-16] MEDS: MELATONIN 5 MG TABLETS PO PRN (21:07)
[2019-01-16] MEDS: TOLNAFTATE 1% CREAM 15 GM TUBE TP SCH (21:09)
[2019-01-17] MEDS: amLODIPine BESYLATE 10 MG TABLET (FP) PO SCH (06:01)
[2019-01-17] MEDS: GABAPENTIN 300 MG CAPSULE (FP) PO SCH ×3 (06:01→22:04)
[2019-01-17] MEDS: CARVEDILOL 3.125 MG TABLET (FP) PO SCH ×2 (09:27→22:04)
[2019-01-17] MEDS: LIDOCAINE 5% TOPICAL PATCH TP SCH (09:27)
[2019-01-17] MEDS: ASPIRIN COATED 81 MG TABLET.EC PO SCH (09:27)
[2019-01-17] MEDS: LISINOPRIL 20 MG TABLET (FP) PO SCH (09:27)
[2019-01-17] MEDS: PRENATAL VITAMINS W/ FOLIC ACID TABLET (FP) PO SCH (09:27)
[2019-01-17] MEDS: SERTRALINE HCL 50 MG TABLET (FP) PO SCH (09:27)
[2019-01-17] MEDS: PANTOPRAZOLE 20 MG TABLET (FP) PO SCH (09:27)
[2019-01-17] MEDS: BACITRACIN 15 GM TUBE TOPICAL OINTMENT TP SCH ×2 (09:29→22:26)
[2019-01-17] MEDS: MINERAL OIL/PETROLAT/WATER TOPICAL CREAM 113 GM JAR TP SCH ×2 (09:29→22:26)
[2019-01-17] MEDS: METHYL SALICYLATE/MENTHOL OINT 30 GM TUBE TP SCH (09:29)
[2019-01-17] MEDS ORDERED: PT OWN MED DRAWER 7, Y5N ONE (09:29)
[2019-01-17] MEDS: ISOSORBIDE MONONITRATE 60 MG TAB.SR.24H (FP) PO SCH (09:29)
[2019-01-17] MEDS: TOLNAFTATE 1% CREAM 15 GM TUBE TP SCH ×2 (09:29→22:06)
[2019-01-17] MEDS: THIAMINE HCL 100 MG TABLET (FP) PO SCH (22:04)
[2019-01-17] MEDS: CLOPIDOGREL BISULFATE 75 MG TABLET (FP) PO SCH (22:04)
[2019-01-17] MEDS: ATORVASTATIN CA 40 MG TABLET (FP) PO SCH (22:04)
[2019-01-17] MEDS: MELATONIN 5 MG TABLETS PO PRN (22:04)
[2019-01-17] MEDS: MIRTAZAPINE 30 MG TABLET (FP) PO SCH (22:04)
[2019-01-17] MEDS: LIDOCAINE PATCH REMOVAL MC SCH (22:06)
[2019-01-18] MEDS: GABAPENTIN 300 MG CAPSULE (FP) PO SCH ×3 (06:28→21:25)
[2019-01-18] MEDS: amLODIPine BESYLATE 10 MG TABLET (FP) PO SCH (06:28)
[2019-01-18] MEDS ORDERED: PT OWN MED DRAWER 7, Y5N ONE ×3 (09:07→20:43)
[2019-01-18] MEDS: SERTRALINE HCL 50 MG TABLET (FP) PO SCH (09:45)
[2019-01-18] MEDS: ASPIRIN COATED 81 MG TABLET.EC PO SCH (09:45)
[2019-01-18] MEDS: CARVEDILOL 3.125 MG TABLET (FP) PO SCH ×2 (09:45→21:25)
[2019-01-18] MEDS: ISOSORBIDE MONONITRATE 60 MG TAB.SR.24H (FP) PO SCH (09:45)
[2019-01-18] MEDS: PRENATAL VITAMINS W/ FOLIC ACID TABLET (FP) PO SCH (09:45)
[2019-01-18] MEDS: LISINOPRIL 20 MG TABLET (FP) PO SCH (09:45)
[2019-01-18] MEDS: PANTOPRAZOLE 20 MG TABLET (FP) PO SCH (09:45)
[2019-01-18] MEDS: MINERAL OIL/PETROLAT/WATER TOPICAL CREAM 113 GM JAR TP SCH ×2 (09:46→21:27)
[2019-01-18] MEDS: LIDOCAINE 5% TOPICAL PATCH TP SCH (09:46)
[2019-01-18] MEDS: BACITRACIN 15 GM TUBE TOPICAL OINTMENT TP SCH ×2 (09:47→21:27)
[2019-01-18] MEDS: METHYL SALICYLATE/MENTHOL OINT 30 GM TUBE TP SCH (09:47)
[2019-01-18] MEDS: TOLNAFTATE 1% CREAM 15 GM TUBE TP SCH ×2 (10:45→21:27)
[2019-01-18] MEDS: MELATONIN 5 MG TABLETS PO PRN (21:25)
[2019-01-18] MEDS: THIAMINE HCL 100 MG TABLET (FP) PO SCH (21:25)
[2019-01-18] MEDS: MIRTAZAPINE 30 MG TABLET (FP) PO SCH (21:26)
[2019-01-18] MEDS: CLOPIDOGREL BISULFATE 75 MG TABLET (FP) PO SCH (21:26)
[2019-01-18] MEDS: LIDOCAINE PATCH REMOVAL MC SCH (21:26)
[2019-01-18] MEDS: ATORVASTATIN CA 40 MG TABLET (FP) PO SCH (21:26)
[2019-01-19] MEDS: GABAPENTIN 300 MG CAPSULE (FP) PO SCH ×3 (06:08→21:48)
[2019-01-19] MEDS: amLODIPine BESYLATE 10 MG TABLET (FP) PO SCH (06:08)
[2019-01-19] MEDS ORDERED: PT OWN MED DRAWER 7, Y5N ONE (09:04)
[2019-01-19] MEDS: PRENATAL VITAMINS W/ FOLIC ACID TABLET (FP) PO SCH (10:01)
[2019-01-19] MEDS: PANTOPRAZOLE 20 MG TABLET (FP) PO SCH (10:01)
[2019-01-19] MEDS: LIDOCAINE 5% TOPICAL PATCH TP SCH (10:01)
[2019-01-19] MEDS: ASPIRIN COATED 81 MG TABLET.EC PO SCH (10:01)
[2019-01-19] MEDS: ISOSORBIDE MONONITRATE 60 MG TAB.SR.24H (FP) PO SCH (10:01)
[2019-01-19] MEDS: SERTRALINE HCL 50 MG TABLET (FP) PO SCH (10:01)
[2019-01-19] MEDS: LISINOPRIL 20 MG TABLET (FP) PO SCH (10:01)
[2019-01-19] MEDS: TOLNAFTATE 1% CREAM 15 GM TUBE TP SCH ×2 (10:02→21:49)
[2019-01-19] MEDS: MINERAL OIL/PETROLAT/WATER TOPICAL CREAM 113 GM JAR TP SCH ×2 (10:02→22:00)
[2019-01-19] MEDS: CARVEDILOL 3.125 MG TABLET (FP) PO SCH ×2 (10:54→21:47)
[2019-01-19] MEDS: METHYL SALICYLATE/MENTHOL OINT 30 GM TUBE TP SCH (10:55)
[2019-01-19] MEDS: BACITRACIN 15 GM TUBE TOPICAL OINTMENT TP SCH ×2 (10:55→22:00)
--- NOTE | 2019-01-19 15:00 | PN ---
[facility] Progress Note Note: Patient is scheduled for discharge tomorrow. Scripts for 30 days supply of medications(Remeron 30 mg/hs, Zoloft 50 mg/day) will be electronically transmitted to [facility] at [address] [place], [place] [id number]
[2019-01-19] MEDS: THIAMINE HCL 100 MG TABLET (FP) PO SCH (21:47)
[2019-01-19] MEDS: MELATONIN 5 MG TABLETS PO PRN (21:47)
[2019-01-19] MEDS: CLOPIDOGREL BISULFATE 75 MG TABLET (FP) PO SCH (21:48)
[2019-01-19] MEDS: MIRTAZAPINE 30 MG TABLET (FP) PO SCH (21:48)
[2019-01-19] MEDS: ATORVASTATIN CA 40 MG TABLET (FP) PO SCH (21:48)
[2019-01-19] MEDS: LIDOCAINE PATCH REMOVAL MC SCH (21:49)
[2019-01-20] MEDS: GABAPENTIN 300 MG CAPSULE (FP) PO SCH (06:53)
[2019-01-20] MEDS: amLODIPine BESYLATE 10 MG TABLET (FP) PO SCH (06:53)
[2019-01-20 07:24] VITALS: BP 152/83; PULSE 61; TEMP 97.8
--- NOTE | 2019-01-20 09:13 | PN ---
[facility] Progress Note (SOAP) Subjective: To be discharged today. Hospital Course: patient attended group meetings, had individual sessions with his counselor, participated in community meetings and was adherent to his treatment plan and medication regimen. Objective: Physical General: Appropriate, able to make needs known, follow instructions, Skin: clear, dry, color consistent throughout trunk and extremities Heart: S1 S2 audible, regular Lungs: Clear Abd: soft, non-tender, non-distended, +BS Neuro: No neurological deficits noted, CN 2-12 intact MSK: Full weight bearing, gait steady 01/20/19 10:46 CBC, BMP 12/25/18 11:32 12/25/18 11:32 Vital Signs (72 hours) 01/17/19 01/18/19 01/18/19 23:05 00:30 03:30 Temperature Pulse Rate 68 Respiratory 18 18 18 Rate Blood Pressure 142/65 01/18/19 01/18/19 01/18/19 07:10 11:19 22:00 Temperature 97.8 F 97.8 F Pulse Rate 63 60 66 Respiratory 18 18 18 Rate Blood Pressure 160/72 159/87 156/76 01/19/19 01/19/19 01/19/19 00:30 03:30 07:12 Temperature 97.7 F Pulse Rate 60 Respiratory 18 18 18 Rate Blood Pressure 161/75 01/19/19 01/19/19 01/20/19 09:30 20:24 00:30 Temperature Pulse Rate 66 71 Respiratory 18 18 18 Rate Blood Pressure 152/72 144/70 01/20/19 07:23 Temperature 97.8 F Pulse Rate 61 Respiratory 18 Rate Blood Pressure 152/83 01/20/19 10:47 Assessment: Medially stable for discharge Discharge Dx; HTN Norvas CAD GERD Cocaine Dependence 01/20/19 10:50 Plan: Patient will continue treatment at [place] for [facility]. He receives primary care from Dr. Casillas at [facility]. Prescriptions were transmitted to his pharmacy. 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
[2019-01-20] MEDS ORDERED: PT OWN MED DRAWER 7, Y5N ONE (09:20)
[2019-01-20] MEDS: CARVEDILOL 3.125 MG TABLET (FP) PO SCH (09:26)
[2019-01-20] MEDS: ASPIRIN COATED 81 MG TABLET.EC PO SCH (09:26)
[2019-01-20] MEDS: ISOSORBIDE MONONITRATE 60 MG TAB.SR.24H (FP) PO SCH (09:27)
[2019-01-20] MEDS: SERTRALINE HCL 50 MG TABLET (FP) PO SCH (09:27)
[2019-01-20] MEDS: PRENATAL VITAMINS W/ FOLIC ACID TABLET (FP) PO SCH (09:27)
[2019-01-20] MEDS: LISINOPRIL 20 MG TABLET (FP) PO SCH (09:27)
[2019-01-20] MEDS: PANTOPRAZOLE 20 MG TABLET (FP) PO SCH (09:27)
[2019-01-20] MEDS: LIDOCAINE 5% TOPICAL PATCH TP SCH (09:28)
[2019-01-20] MEDS: METHYL SALICYLATE/MENTHOL OINT 30 GM TUBE TP SCH (09:29)
[2019-01-20] MEDS: BACITRACIN 15 GM TUBE TOPICAL OINTMENT TP SCH (09:29)
[2019-01-20] MEDS: TOLNAFTATE 1% CREAM 15 GM TUBE TP SCH (09:30)
[2019-01-20] MEDS: MINERAL OIL/PETROLAT/WATER TOPICAL CREAM 113 GM JAR TP SCH (09:30)
== END 2019-01-20 10:00 | disposition home or self-care (01) | DRG 772 ==
LOC: YASAS 08:22 → Y3W 11:04
PROVIDERS: ADMIT Neuromusculoskeletal Medicine & OMM; ATTEND Neuromusculoskeletal Medicine & OMM
PROC: HZ42ZZZ Group Counseling for Substance Abuse Treatment, Cognitive-Behavioral (ICD-10-PCS; principal; 2018-12-25)
DX: F10.20 Alcohol dependence, uncomplicated (principal); F14.20 Cocaine dependence, uncomplicated; F15.10 Other stimulant abuse, uncomplicated; F12.10 Cannabis abuse, uncomplicated; F17.210 Nicotine dependence, cigarettes, uncomplicated; F19.24 Other psychoactive substance dependence with psychoactive substance-induced mood disorder; F19.282 Other psychoactive substance dependence with psychoactive substance-induced sleep disorder; I10 Essential (primary) hypertension; I25.10 Atherosclerotic heart disease of native coronary artery without angina pectoris; K21.9 Gastro-esophageal reflux disease without esophagitis; M54.5 Low back pain; G89.29 Other chronic pain; I25.2 Old myocardial infarction; M19.90 Unspecified osteoarthritis, unspecified site; B18.2 Chronic viral hepatitis C; E78.5 Hyperlipidemia, unspecified; Z95.1 Presence of aortocoronary bypass graft; Z95.5 Presence of coronary angioplasty implant and graft; Z79.02 Long term (current) use of antithrombotics/antiplatelets; S99.911A Unspecified injury of right ankle, initial encounter; X58.XXXA Exposure to other specified factors, initial encounter; Y93.9 Activity, unspecified; Y92.9 Unspecified place or not applicable
CPT/HCPCS: 36415; 80053; 81003; 85027; 86593; 87389; J0735

== ENCOUNTER 2019-06-29 17:38 | Inpatient (IN) | payer OTHER ==
[2019-06-29 18:54] VITALS: BMI 27.8
--- NOTE | 2019-06-29 20:49 | HP ---
CIWA Score Nausea/Vomitin-Mild Nausea/No Vomiting Muscle Tremors: 3 Anxiety: 3 Agitation: 3 Paroxysmal Sweats: 2 Orientation: 0-Oriented Tacttile Disturbances: 0-None Auditory Disturbances: 0-None Visual Disturbances: 0-None Headache: 2-Mild CIWA-Ar Total Score: 14 - Admission Criteria OASAS Guidelines: Admission for Medically Managed Detox: Requires at least one of the followin. CIWA greater than 12 2. Seizures within the past 24 hours 3. Delirium tremens within the past 24 hours 4. Hallucinations within the past 24 hours 5. Acute intervention needed for co occurring medical disorder 6. Acute intervention needed for co occurring psychiatric disorder 7. Severe withdrawal that cannot be handled at a lower level of care (continued vomiting, continued diarrhea, abnormal vital signs) requiring intravenous medication and/or fluids 8. Admitting History and Physical - Smoking History Smoking history: Current every day smoker Have you smoked in the past 12 months: Yes Aproximately how many cigarettes per day: 20 - Alcohol/Substance Use Hx Alcohol Use: Yes Admission ROS [facility] Chief Complaint: Seeking admission to detox Allergies/Adverse Reactions: Allergies Allergy/AdvReac Type Severity Reaction Status Date / Time No Known Allergies Allergy Verified 06/29/19 18:31 History of Present Illness: 64 years old male with a long history of alcohol dependence is seeking admission to detox. Patient has been admitted multiple times to multiple detox facilities and reports that he relapses soon after treatment. Patient reports that he had a fall a year ago and has chronic left knee and lower back pain. He report that his PCP referred him for X-ray and he plans to schedule for the x- ray post discharge from detox. He has medical history of hypertension, hyperlipidemia, Rheumatoid arthritis, gout, , Osteoarthritis, GERD and Hep C. ( treated with Harvoni) He reports psychiatric history of bipolar disorder, PTSD and depression. He states that he had quadruple bypass in 2013. He denies suicidal ideation at this time. His drug screen result was positive for cocaine. He denies seizures and blackouts. Exam Limitations: No Limitations - Ebola screening Have you traveled outside of the country in the last 21 days: No Have you had contact with anyone from an Ebola affected area: No Do you have a fever: No - Review of Systems Constitutional: Night Sweats, Changes in sleep EENT: reports: No Symptoms Reported Respiratory: reports: No Symptoms reported Cardiac: reports: No Symptoms Reported GI: reports: Nausea, Poor Appetite, Poor Fluid Intake : reports: No Symptoms Reported Musculoskeletal: reports: Back Pain, Joint Pain Integumentary: reports: Dryness, Flushing Neuro: reports: Headache Endocrine: reports: No Symptoms Reported Hematology: reports: No Symptoms Reported Psychiatric: reports: Mood/Affect Appropiate, Orientated x3 Other Systems: Reviewed and Negative Patient History - Patient Medical History Hx Anemia: No Hx Asthma: No Hx Chronic Obstructive Pulmonary Disease (COPD): No Hx Cancer: No Hx Cardiac Disorders: Yes Hx Congestive Heart Failure: No Hx Hypertension: Yes Hx Hypercholesterolemia: Yes Hx Pacemaker: No HX Cerebrovascular Accident: No Hx Seizures: No Hx Dementia: No Hx Diabetes: No Hx Gastrointestinal Disorders: Yes Hx Liver Disease: No Hx Genitourinary Disorders: No Hx Sexually Transmitted Disorders: No Hx Renal Disease (ESRD): No Hx Thyroid Disease: No Hx Human Immunodeficiency Virus (HIV): No (last tested aug 2017) Hx Hepatitis C: Yes (treated ) Hx Depression: Yes Hx Suicide Attempt: No Hx Bipolar Disorder: Yes Hx Schizophrenia: No - Patient Surgical History Past Surgical History: Yes Hx Neurologic Surgery: No Hx Cataract Extraction: Yes (2 STENTS 2010) Hx Cardiac Surgery: No Hx Lung Surgery: No Hx Breast Surgery: No Hx Breast Biopsy: No Hx Abdominal Surgery: No Hx Appendectomy: No Hx Cholecystectomy: No Hx Genitourinary Surgery: No Hx Section: No Hx Orthopedic Surgery: No Hx Hysterectomy: No Anesthesia Reaction: No - PPD History Previous Implant?: Yes Documented Results: Negative w/proof Implanted On Prior [facility] Admission?: Yes Date: 02/15/18 Results: 0 mm PPD to be Administered?: Yes - Reproductive History Patient is a Female of Child Bearing Age (11 -55 yrs old): No (male) - Smoking Cessation Smoking history: Current every day smoker Have you smoked in the past 12 months: Yes Aproximately how many cigarettes per day: 20 Hx Chewing Tobacco Use: No Initiated information on smoking cessation: Yes 'Breaking Loose' booklet given: 06/30/19 - Substance & Tx. History Hx Alcohol Use: Yes Hx Substance Use: Yes Substance Use Type: Alcohol, Cocaine Hx Substance Use Treatment: Yes - Substances abused Alcohol Substance route: Oral Frequency: Daily Amount used: 2 of 6 packs of beer/ 2 liters of vodka. Age of first use: 18 Date of last use: 06/29/19 Other Other (specify): crystal methadone Substance route: Smoking Frequency: 1-3 times last 30 days Amount used: 200- 300 hundred Age of first use: 63 Date of last use: 12/23/18 Cocaine Substance route: Inhalation Frequency: 1-3 times last 30 days Amount used: 1 gram Age of first use: 18 Date of last use: 12/22/18 Marijuana/Hashish Substance route: Smoking Frequency: 1-3 times last 30 days Amount used: 2-3 pulls Age of first use: 18 Date of last use: 12/18/18 Admission Physical Exam S - Vital Signs Vital Signs: Vital Signs - 24 hr 06/29/19 06/29/19 18:42 19:10 Temperature 97.0 F L 97.0 F L Pulse Rate 78 78 Respiratory 16 16 Rate Blood Pressure 161/80 161/80 - Physical General Appearance: Yes: Moderate Distress, Irritable, Sweating HEENTM: Yes: Nasal Congestion Respiratory: Yes: Lungs Clear, Normal Breath Sounds, No Respiratory Distress Neck: Yes: Within Normal Limits, Supple Breast: Yes: Breast Exam Deferred Cardiology: Yes: Regular Rhythm, Regular Rate Abdominal: Yes: Normal Bowel Sounds, Soft Genitourinary: Yes: Within Normal Limits Back: Yes: Normal Inspection Musculoskeletal: Yes: Back pain, Muscle Pain Extremities: Yes: Tremors Neurological: Yes: Alert, Normal Mood/Affect Integumentary: Yes: Warm Lymphatic: Yes: Within Normal Limits - Diagnostic (1) Rheumatoid arthritis Current Visit: Yes Status: Chronic Qualifiers: Rheumatoid arthritis location: knee Laterality: unspecified laterality (2) Gout Current Visit: Yes Status: Chronic Qualifiers: Gout site: foot (3) Alcohol dependence with withdrawal Current Visit: Yes Status: Chronic Qualifiers: Complication of substance-induced condition: uncomplicated Qualified Code(s ): F10.230 - Alcohol dependence with withdrawal, uncomplicated (4) Cocaine dependence Current Visit: Yes Status: Chronic Qualifiers: Substance use status: uncomplicated Qualified Code(s): F14.20 - Cocaine dependence, uncomplicated (5) Coronary artery disease Current Visit: Yes Status: Chronic Qualifiers: Coronary Disease-Associated Artery/Lesion type: unspecified vessel or lesion type [place] vs. transplanted heart: unspecified whether [place] or transplanted heart Associated angina: angina presence unspecified Qualified Code(s): I25.10 - Atherosclerotic heart disease of [place] coronary artery without angina pectoris (6) GERD (gastroesophageal reflux disease) Current Visit: Yes Status: Chronic Qualifiers: Esophagitis presence: without esophagitis Qualified Code(s): K21.9 - Gastro -esophageal reflux disease without esophagitis (7) HTN (hypertension) Current Visit: Yes Status: Chronic Qualifiers: Hypertension type: essential hypertension Qualified Code(s): I10 - Essential (primary) hypertension (8) Hyperlipidemia Current Visit: Yes Status: Chronic Qualifiers: Hyperlipidemia type: unspecified Qualified Code(s): E78.5 - Hyperlipidemia , unspecified (9) Nicotine dependence Current Visit: No Status: Chronic Qualifiers: Nicotine product type: cigarettes Substance use status: uncomplicated Qualified Code(s): F17.210 - Nicotine dependence, cigarettes, uncomplicated (10) Osteoarthritis Current Visit: Yes Status: Chronic (11) Hepatitis C Current Visit: No Status: Resolved (12) History of heart artery stent Current Visit: Yes Status: Resolved (13) S/P CABG (coronary artery bypass graft) Current Visit: Yes Status: Chronic Cleared for Admission S - Detox or Rehab [facility] Level of Care: Medically Managed Detox Regimen/Protocol: Librium Claeared for Rehab Admission: No Breathalyzer - Breathalyzer Breathalyzer: 0.059 Urine Drug Screen - Test Device Lot number: [id number] Expiration date: 01/28/21 - Control Is test valid?: Yes - Results Drug screen NEGATIVE: No Urine drug screen results: DESIREE-Cocaine Inpatient Rehab Admission - Rehab Decision to Admit Inpatient rehab admission?: No
[2019-06-29] MEDS ORDERED: MAGNESIUM HYDROX 2400MG/30ML ORAL SUSPENSION 30 ML CUP PO PRN (21:13)
[2019-06-29] MEDS ORDERED: hydrOXYzine PAMOATE 25 MG CAPSULE (FP) PO PRN (21:13)
[2019-06-29] MEDS ORDERED: NICOTINE POLACRILEX 2 MG GUM BUC PRN (21:13)
[2019-06-29] MEDS ORDERED: MAG HYDROX/AL HYDROX/SIMETH 30 ML UNIT-DOSE CUP PO PRN (21:13)
[2019-06-29] MEDS ORDERED: chlordiazePOXIDE HCL 10 MG CAPSULE PO PRN (21:13)
[2019-06-29] MEDS ORDERED: MELATONIN 5 MG TABLETS PO PRN (21:13)
[2019-06-29] MEDS ORDERED: IBUPROFEN 400 MG TABLET (FP) PO PRN (21:13)
[2019-06-29] MEDS ORDERED: ACETAMINOPHEN 325 MG TABLET (FP) PO PRN ×2 (21:13)
[2019-06-29] MEDS ORDERED: METHOCARBAMOL 500 MG TABLET PO PRN (21:13)
[2019-06-29] MEDS ORDERED: MAGNESIUM CITRATE 300 ML BOTTLE PO PRN (21:13)
[2019-06-29] MEDS ORDERED: BISMUTH SUBSALICYLATE 524 MG/30 ML UD PO PRN (21:13)
[2019-06-29] MEDS ORDERED: MENTHOL/PHENOL 1 EACH UD MM PRN (21:13)
[2019-06-29] MEDS: ATORVASTATIN CA 40 MG TABLET (FP) PO SCH (23:13)
[2019-06-29] MEDS: GABAPENTIN 300 MG CAPSULE (FP) PO SCH (23:13)
[2019-06-29] MEDS: chlordiazePOXIDE HCL 25 MG CAPSULE PO SCH (23:13)
[2019-06-29] MEDS: CLOPIDOGREL BISULFATE 75 MG TABLET (FP) PO SCH (23:13)
[2019-06-29] MEDS: THIAMINE HCL 100 MG TABLET (FP) PO SCH (23:14)
[2019-06-30] MEDS: GABAPENTIN 300 MG CAPSULE (FP) PO SCH ×3 (06:35→22:08)
[2019-06-30] MEDS: chlordiazePOXIDE HCL 25 MG CAPSULE PO SCH (06:36)
--- NOTE | 2019-06-30 09:12 | CONSULT ---
[facility] Psychiatric Consult - Data Date of interview: 06/30/19 Admission source: Self-referred Identifying data: Mr Flood is a 64 years old single Black male, father of 5 children, unemployed receiving SSI, homeless seeking rehab treatment for alcohol , cocaine, methamphetamine and cannabis Substance Abuse History: Reports history of alcohol, cocaine, crystal meth and marijuana use. Refer to addiction counselor's summary for further information Medical History: Significant for hypertension, dyslipidemia, rheumatoid arthritis, osteoarthritis, gout, GERD, coronary artery disease/angina, chronic lumbar pain, cataracts (bilateral), history of myocardial infarction, treatment for hepatitis C and surgeries( stenting x2, CABG). Smokes cigarettes 1 ppd Psychiatric History: Patient is well known to appeals writer from two previous encounters during admissions to this facility in January 2018 and November 2018. Historical narrative remains consistent. He reports that his first psychiatric contact was during his time in correction from [id number]. Claims that he was diagnosed with MDD but refused to be prescribed medication. He was started on psychotropic medication in 2005 by a outpatient psychiatrist at [facility] in [facility]). He now receives psychiatric outpatient treatment at [facility] in [facility] and he is prescribed Zoloft 50 mg po daily and Remeron 30 mg po HS. Claims that he was prescribed medications by his psychiatrist 2 weeks ago but due to his addiction, he has not been taking them consistently. Denies history of previous psychiatric hospitalization or suicidal attempt. At present, denies experiencing depressive symptoms, S/H ideations. However, reports sleeping poorly. Requests to resume his psychotropic medications Physical/Sexual Abuse/Trauma History: Denies history of emotional, physical or sexual abuse as well as DV relationship. Additional Comment: Reports history of multiple previous arrests including 2 felony convictions. Reports being on parole till December 19, 2019 Mental Status Exam - Mental Status Exam Alert and Oriented to: Time, Place, Person Cognitive Function: Fair Patient Appearance: Disheveled Mood: Hopeful, Euthymic Speech Pattern: Clear Voice Loudness: Normal Thought Process: Intact, Goal Oriented Thought Disorder: Not Present Hallucinations: Denies Suicidal Ideation: Denies Homicidal Ideation: Denies Insight/Judgement: Poor Sleep: Poorly Appetite: Good Muscle strength/Tone: Normal Gait/Station: Normal Psychiatric Findings - Problem List ([place] 1, 2,3) (1) MDD (major depressive disorder) Current Visit: No Status: Chronic (2) Substance-induced sleep disorder Current Visit: Yes Status: Acute (3) Alcohol dependence with withdrawal Current Visit: Yes Status: Acute Qualifiers: Complication of substance-induced condition: uncomplicated Qualified Code(s ): F10.230 - Alcohol dependence with withdrawal, uncomplicated (4) Cocaine dependence Current Visit: Yes Status: Acute Qualifiers: Substance use status: uncomplicated Qualified Code(s): F14.20 - Cocaine dependence, uncomplicated (5) Nicotine dependence Current Visit: No Status: Chronic Qualifiers: Nicotine product type: cigarettes Substance use status: uncomplicated Qualified Code(s): F17.210 - Nicotine dependence, cigarettes, uncomplicated (6) HTN (hypertension) Current Visit: Yes Status: Chronic Qualifiers: Hypertension type: essential hypertension Qualified Code(s): I10 - Essential (primary) hypertension (7) Hyperlipidemia Current Visit: Yes Status: Chronic Qualifiers: Hyperlipidemia type: unspecified Qualified Code(s): E78.5 - Hyperlipidemia , unspecified (8) Coronary artery disease Current Visit: Yes Status: Chronic Qualifiers: Coronary Disease-Associated Artery/Lesion type: unspecified vessel or lesion type [place] vs. transplanted heart: unspecified whether [place] or transplanted heart Associated angina: angina presence unspecified Qualified Code(s): I25.10 - Atherosclerotic heart disease of [place] coronary artery without angina pectoris (9) GERD (gastroesophageal reflux disease) Current Visit: Yes Status: Chronic Qualifiers: Esophagitis presence: without esophagitis Qualified Code(s): K21.9 - Gastro -esophageal reflux disease without esophagitis (10) Gout Current Visit: Yes Status: Chronic Qualifiers: Gout site: foot (11) Osteoarthritis Current Visit: Yes Status: Chronic (12) Rheumatoid arthritis Current Visit: Yes Status: Chronic Qualifiers: Rheumatoid arthritis location: knee Laterality: unspecified laterality (13) Hepatitis C Current Visit: No Status: Resolved (14) S/P CABG (coronary artery bypass graft) Current Visit: Yes Status: Resolved (15) History of heart artery stent Current Visit: Yes Status: Resolved - Initial Treatment Plan Initial Treatment Plan: 1) Resume Zoloft 50 mg po daily and Remeron 30 mg po HS. 2) Continue inpatient detoxification
--- NOTE | 2019-06-30 10:13 | EKG ---
Test Reason : Blood Pressure : / mmHG Vent. Rate : 076 BPM Atrial Rate : 076 BPM P-R Int : 122 ms QRS Dur : 096 ms QT Int : 384 ms P-R-T Axes : 029 073 129 degrees QTc Int : 432 ms NORMAL SINUS RHYTHM MINIMAL VOLTAGE CRITERIA FOR LVH, MAY BE NORMAL VARIANT T WAVE ABNORMALITY, CONSIDER ANTEROLATERAL ISCHEMIA ABNORMAL ECG WHEN COMPARED WITH ECG OF 19-FEB-2018 22:13, NO SIGNIFICANT CHANGE WAS FOUND Confirmed by MD Sade, Mega ([id number]) on 06/30/2019 10:13:24 AM Referred By: Confirmed By:Mega Stuart MD
--- NOTE | 2019-06-30 10:14 | PN ---
S CIWA - CIWA Score Nausea/Vomitin-No Nausea/No Vomiting Muscle Tremors: 3 Anxiety: 2 Agitation: 2 Paroxysmal Sweats: 2 Orientation: 0-Oriented Tacttile Disturbances: 0-None Auditory Disturbances: 0-None Visual Disturbances: 0-None Headache: 0-None Present CIWA-Ar Total Score: 9 [facility] Progress Note (SOAP) Subjective: tired sweats nausea I really want detox but the librium is too bitter and strong for me Objective: 06/30/19 10:12 Vital Signs Temperature 98.9 F 06/30/19 09:21 Pulse Rate 77 06/30/19 09:21 Respiratory Rate 18 06/30/19 09:21 Blood Pressure 161/95 06/30/19 09:21 O2 Sat by Pulse Oximetry (%) labs pending aaox3 ambulating with cane no acute distress Assessment: 06/30/19 10:13 withdrawals Plan: libirum d/c ativan protocol for detox initiated; pt agreed with new order cane ordered increase fluids
[2019-06-30] MEDS: ISOSORBIDE MONONITRATE 30 MG TAB.SR.24H (FP) PO SCH (10:22)
[2019-06-30] MEDS: ASPIRIN COATED 81 MG TABLET.EC PO SCH (10:22)
[2019-06-30] MEDS: amLODIPine BESYLATE 5 MG TABLET (FP) PO SCH (10:22)
[2019-06-30] MEDS: NICOTINE 21 MG/24 HOURS TOPICAL PATCH TD SCH (10:22)
[2019-06-30] MEDS: CALCIUM (OYSTER SHELL) 500 MG TABLET (FP) PO SCH ×3 (10:22→22:09)
[2019-06-30] MEDS: PRENATAL VITAMINS W/ FOLIC ACID TABLET (FP) PO SCH (10:22)
[2019-06-30] MEDS: CARVEDILOL 3.125 MG TABLET (FP) PO SCH ×3 (10:22→22:09)
[2019-06-30] MEDS: SERTRALINE HCL 50 MG TABLET (FP) PO SCH (10:23)
[2019-06-30] MEDS: LISINOPRIL 20 MG TABLET (FP) PO SCH (10:23)
[2019-06-30] MEDS: LORazepam 2 MG TABLET PO SCH ×3 (10:24→22:09)
[2019-06-30 12:11] LABS: HEMATOCRIT 41.4 % (35.4-49); HEMOGLOBIN 13.9 GM/dL (11.7-16.9); MCH 32.3 pg (25.7-33.7); MCHC 33.5 g/dl (32.0-35.9); MEAN CELL VOLUME 96.4 fl (80-96); MEAN PLT VOLUME 7.7 fl (7.5-11.1); PLATELET COUNT 217 K/MM3 (134-434); RBC 4.29 M/mm3 (4.00-5.60); RDW 14.5 % (11.9-15.9); WHITE BLOOD COUNT 5.8 K/mm3 (4.0-10.0)
[2019-06-30 12:13] LABS: ALBUMIN 3.2 g/dl (3.4-5.0); BILIRUBIN,TOTAL 0.4 mg/dL (0.2-1); BLOOD UREA NITROGEN 11.6 mg/dL (7-18); CALCIUM 8.4 mg/dL (8.5-10.1); CREATININE 0.7 mg/dL (0.55-1.3); POTASSIUM 3.5 mmol/L (3.5-5.1); TOT PROT 6.8 g/dl (6.4-8.2)
[2019-06-30] MEDS: CLOPIDOGREL BISULFATE 75 MG TABLET (FP) PO SCH (22:08)
[2019-06-30] MEDS: MIRTAZAPINE 30 MG TABLET (FP) PO SCH (22:08)
[2019-06-30] MEDS: ATORVASTATIN CA 40 MG TABLET (FP) PO SCH (22:09)
[2019-06-30] MEDS: THIAMINE HCL 100 MG TABLET (FP) PO SCH (22:09)
[2019-07-01] MEDS ORDERED: chlordiazePOXIDE 5 MG CAPSULE PO SCH (05:00)
[2019-07-01] MEDS: LORazepam 2 MG TABLET PO SCH ×4 (05:54→22:23)
[2019-07-01] MEDS: GABAPENTIN 300 MG CAPSULE (FP) PO SCH ×3 (05:54→22:23)
[2019-07-01] MEDS: SERTRALINE HCL 50 MG TABLET (FP) PO SCH (10:46)
[2019-07-01] MEDS: ASPIRIN COATED 81 MG TABLET.EC PO SCH (10:46)
[2019-07-01] MEDS: CALCIUM (OYSTER SHELL) 500 MG TABLET (FP) PO SCH ×2 (10:46→22:23)
[2019-07-01] MEDS: NICOTINE 21 MG/24 HOURS TOPICAL PATCH TD SCH (10:46)
[2019-07-01] MEDS: LISINOPRIL 20 MG TABLET (FP) PO SCH (10:46)
[2019-07-01] MEDS: amLODIPine BESYLATE 5 MG TABLET (FP) PO SCH (10:46)
[2019-07-01] MEDS: CARVEDILOL 3.125 MG TABLET (FP) PO SCH ×2 (10:46→22:23)
[2019-07-01] MEDS: PRENATAL VITAMINS W/ FOLIC ACID TABLET (FP) PO SCH (10:46)
[2019-07-01] MEDS: ISOSORBIDE MONONITRATE 30 MG TAB.SR.24H (FP) PO SCH (10:46)
--- NOTE | 2019-07-01 12:18 | PN ---
S CIWA - CIWA Score Nausea/Vomitin-Mild Nausea/No Vomiting Muscle Tremors: 2 Anxiety: 1-Mildly Anxious Agitation: 0-Normal Activity Paroxysmal Sweats: No Perspiration Orientation: 0-Oriented Tacttile Disturbances: 2-Mild Itch/Numbness/Burn Auditory Disturbances: 0-None Visual Disturbances: 1-Very Mild Sensitivity Headache: 1-Very Mild CIWA-Ar Total Score: 8 [facility] Progress Note (SOAP) Subjective: c/o of interrupted sleep, chills, anxious, body aches Objective: 07/01/19 12:16 Vital Signs Temperature 97.2 F L 07/01/19 10:10 Pulse Rate 70 07/01/19 10:10 Respiratory Rate 20 07/01/19 10:10 Blood Pressure 169/97 07/01/19 10:10 O2 Sat by Pulse Oximetry (%) Laboratory Last Values WBC 5.8 K/mm3 (4.0-10.0) 06/30/19 07:00 RBC 4.29 M/mm3 (4.00-5.60) 06/30/19 07:00 Hgb 13.9 GM/dL (11.7-16.9) 06/30/19 07:00 Hct 41.4 % (35.4-49) 06/30/19 07:00 MCV 96.4 fl (80-96) H 06/30/19 07:00 MCH 32.3 pg (25.7-33.7) 06/30/19 07:00 MCHC 33.5 g/dl (32.0-35.9) 06/30/19 07:00 RDW 14.5 % (11.9-15.9) 06/30/19 07:00 Plt Count 217 K/MM3 (134-434) 06/30/19 07:00 MPV 7.7 fl (7.5-11.1) 06/30/19 07:00 Sodium 140 mmol/L (136-145) 06/30/19 07:00 Potassium 3.5 mmol/L (3.5-5.1) 06/30/19 07:00 Chloride 105 mmol/L (98-107) 06/30/19 07:00 Carbon Dioxide 28 mmol/L (21-32) 06/30/19 07:00 Anion Gap 7 MMOL/L (8-16) L 06/30/19 07:00 BUN 11.6 mg/dL (7-18) 06/30/19 07:00 Creatinine 0.7 mg/dL (0.55-1.3) 06/30/19 07:00 Est GFR (CKD-EPI)AfAm 117.22 06/30/19 07:00 Est GFR (CKD-EPI)NonAf 101.14 06/30/19 07:00 Random Glucose 99 mg/dL (74-106) 06/30/19 07:00 Calcium 8.4 mg/dL (8.5-10.1) L 06/30/19 07:00 Total Bilirubin 0.4 mg/dL (0.2-1) 06/30/19 07:00 AST 16 U/L (15-37) 06/30/19 07:00 ALT 20 U/L (13-61) 06/30/19 07:00 Alkaline Phosphatase 76 U/L (45-117) 06/30/19 07:00 Total Protein 6.8 g/dl (6.4-8.2) 06/30/19 07:00 Albumin 3.2 g/dl (3.4-5.0) L 06/30/19 07:00 RPR Titer Nonreactive (NONREACTIVE) 06/30/19 07:00 Assessment: 07/01/19 12:16 Patient Aox3 no acute distress full ROM ambulating in the unit with cane withfdrawal sx Plan: increase PO fluids continue detox continue to monitor
[2019-07-01] MEDS: MIRTAZAPINE 30 MG TABLET (FP) PO SCH (22:22)
[2019-07-01] MEDS: THIAMINE HCL 100 MG TABLET (FP) PO SCH (22:22)
[2019-07-01] MEDS: CLOPIDOGREL BISULFATE 75 MG TABLET (FP) PO SCH (22:22)
[2019-07-01] MEDS: ATORVASTATIN CA 40 MG TABLET (FP) PO SCH (22:23)
[2019-07-02] MEDS ORDERED: chlordiazePOXIDE HCL 10 MG CAPSULE PO PRN
[2019-07-02] MEDS ORDERED: chlordiazePOXIDE HCL 10 MG CAPSULE PO SCH (05:00)
[2019-07-02] MEDS: GABAPENTIN 300 MG CAPSULE (FP) PO SCH ×3 (07:20→22:17)
[2019-07-02] MEDS: LORazepam 1 MG TABLET PO SCH ×4 (07:47→22:17)
[2019-07-02] MEDS: amLODIPine BESYLATE 5 MG TABLET (FP) PO SCH (09:18)
[2019-07-02] MEDS: ASPIRIN COATED 81 MG TABLET.EC PO SCH (09:18)
[2019-07-02] MEDS: LISINOPRIL 20 MG TABLET (FP) PO SCH (09:18)
[2019-07-02] MEDS: PRENATAL VITAMINS W/ FOLIC ACID TABLET (FP) PO SCH (09:19)
[2019-07-02] MEDS: SERTRALINE HCL 50 MG TABLET (FP) PO SCH (09:19)
[2019-07-02] MEDS: ISOSORBIDE MONONITRATE 30 MG TAB.SR.24H (FP) PO SCH (09:19)
[2019-07-02] MEDS: NICOTINE 21 MG/24 HOURS TOPICAL PATCH TD SCH (09:19)
[2019-07-02] MEDS: CALCIUM (OYSTER SHELL) 500 MG TABLET (FP) PO SCH ×2 (09:19→22:18)
[2019-07-02] MEDS: CARVEDILOL 3.125 MG TABLET (FP) PO SCH ×2 (09:19→22:17)
--- NOTE | 2019-07-02 11:08 | PN ---
S CIWA - CIWA Score Nausea/Vomitin-No Nausea/No Vomiting Muscle Tremors: None Anxiety: 2 Agitation: 0-Normal Activity Paroxysmal Sweats: 3 Orientation: 0-Oriented Tacttile Disturbances: 0-None Auditory Disturbances: 0-None Visual Disturbances: 0-None Headache: 2-Mild CIWA-Ar Total Score: 7 BHS Progress Note (SOAP) Subjective: c/o sweats, anxiety, and headache. Objective: 07/02/19 11:09 Vital Signs 07/02/19 07/02/19 07/02/19 03:30 07:29 09:37 Temperature 97.9 F 97.7 F Pulse Rate 65 77 Respiratory 18 20 18 Rate Blood Pressure 136/78 164/86 Laboratory Last Values WBC 5.8 K/mm3 (4.0-10.0) 06/30/19 07:00 RBC 4.29 M/mm3 (4.00-5.60) 06/30/19 07:00 Hgb 13.9 GM/dL (11.7-16.9) 06/30/19 07:00 Hct 41.4 % (35.4-49) 06/30/19 07:00 MCV 96.4 fl (80-96) H 06/30/19 07:00 MCH 32.3 pg (25.7-33.7) 06/30/19 07:00 MCHC 33.5 g/dl (32.0-35.9) 06/30/19 07:00 RDW 14.5 % (11.9-15.9) 06/30/19 07:00 Plt Count 217 K/MM3 (134-434) 06/30/19 07:00 MPV 7.7 fl (7.5-11.1) 06/30/19 07:00 Sodium 140 mmol/L (136-145) 06/30/19 07:00 Potassium 3.5 mmol/L (3.5-5.1) 06/30/19 07:00 Chloride 105 mmol/L (98-107) 06/30/19 07:00 Carbon Dioxide 28 mmol/L (21-32) 06/30/19 07:00 Anion Gap 7 MMOL/L (8-16) L 06/30/19 07:00 BUN 11.6 mg/dL (7-18) 06/30/19 07:00 Creatinine 0.7 mg/dL (0.55-1.3) 06/30/19 07:00 Est GFR (CKD-EPI)AfAm 117.22 06/30/19 07:00 Est GFR (CKD-EPI)NonAf 101.14 06/30/19 07:00 Random Glucose 99 mg/dL (74-106) 06/30/19 07:00 Calcium 8.4 mg/dL (8.5-10.1) L 06/30/19 07:00 Total Bilirubin 0.4 mg/dL (0.2-1) 06/30/19 07:00 AST 16 U/L (15-37) 06/30/19 07:00 ALT 20 U/L (13-61) 06/30/19 07:00 Alkaline Phosphatase 76 U/L (45-117) 06/30/19 07:00 Total Protein 6.8 g/dl (6.4-8.2) 06/30/19 07:00 Albumin 3.2 g/dl (3.4-5.0) L 06/30/19 07:00 RPR Titer Nonreactive (NONREACTIVE) 06/30/19 07:00 Labs noted. Assessment: 07/02/19 11:09 AOX3, in no acute respiratory distress. Full ROM, ambulating in the unit. Withdrawal symptoms. Plan: continue detox.
[2019-07-02] MEDS: MIRTAZAPINE 30 MG TABLET (FP) PO SCH (22:17)
[2019-07-02] MEDS: ATORVASTATIN CA 40 MG TABLET (FP) PO SCH (22:17)
[2019-07-02] MEDS: THIAMINE HCL 100 MG TABLET (FP) PO SCH (22:17)
[2019-07-02] MEDS: CLOPIDOGREL BISULFATE 75 MG TABLET (FP) PO SCH (22:18)
[2019-07-03] MEDS ORDERED: LORazepam 0.5 MG TABLET PO PRN
[2019-07-03] MEDS ORDERED: chlordiazePOXIDE HCL 10 MG CAPSULE PO ONE (05:00)
[2019-07-03] MEDS: GABAPENTIN 300 MG CAPSULE (FP) PO SCH ×3 (06:11→21:21)
[2019-07-03] MEDS: LORazepam 0.5 MG TABLET PO SCH ×4 (06:11→22:00)
[2019-07-03] MEDS: CARVEDILOL 3.125 MG TABLET (FP) PO SCH ×2 (09:42→21:47)
[2019-07-03] MEDS: ASPIRIN COATED 81 MG TABLET.EC PO SCH (09:42)
[2019-07-03] MEDS: LISINOPRIL 20 MG TABLET (FP) PO SCH (09:42)
[2019-07-03] MEDS: SERTRALINE HCL 50 MG TABLET (FP) PO SCH (09:42)
[2019-07-03] MEDS: amLODIPine BESYLATE 5 MG TABLET (FP) PO SCH (09:42)
[2019-07-03] MEDS: CALCIUM (OYSTER SHELL) 500 MG TABLET (FP) PO SCH ×2 (09:42→21:22)
[2019-07-03] MEDS: ISOSORBIDE MONONITRATE 30 MG TAB.SR.24H (FP) PO SCH (09:42)
[2019-07-03] MEDS: PRENATAL VITAMINS W/ FOLIC ACID TABLET (FP) PO SCH (09:42)
[2019-07-03] MEDS: NICOTINE 21 MG/24 HOURS TOPICAL PATCH TD SCH (09:42)
--- NOTE | 2019-07-03 11:33 | DS ---
[facility] Detox Discharge Summary Admission Date: 06/29/19 Discharge Date: 07/03/19 - Physical Exam Results Vital Signs: Vital Signs Temperature 97.3 F L 07/03/19 09:42 Pulse Rate 70 07/03/19 09:42 Respiratory Rate 18 07/03/19 09:42 Blood Pressure 162/85 07/03/19 09:42 O2 Sat by Pulse Oximetry (%) - Medication Discharge Medications: Ambulatory Orders Ascorbic Acid [Vitamin C] 500 mg PO BID 12/24/18 Mirtazapine [Remeron -] 30 mg PO HS #30 tablet 01/19/19 Sertraline HCl [Zoloft -] 50 mg PO DAILY #30 tablet 01/19/19 Amlodipine Besylate [Norvasc -] 5 mg PO DAILY #20 tablet 01/20/19 Aspirin [Aspirin EC] 81 mg PO DAILY #20 tablet. 01/20/19 Atorvastatin Ca [Lipitor] 40 mg PO HS #20 tablet 01/20/19 Calcium (Oyster Shell) [Os-Zaheer 500MG -] 500 mg PO BID #20 tablet 01/20/19 Carvedilol [Coreg -] 3.125 mg PO BID #30 tablet 01/20/19 Clopidogrel Bisulfate [Plavix] 75 mg PO HS #20 tablet 01/20/19 Isosorbide Mononitrate [Isosorbide Mononitrate ER] 30 mg PO DAILY #20 tab.er.24h 01/20/19 Lisinopril 40 mg PO DAILY #20 tablet 01/20/19 Multivitamin [One-Daily Multi-Vitamin] 1 each PO DAILY #20 tablet 01/20/19 Omeprazole Magnesium [Prilosec Otc] 20 mg PO DAILY #20 tablet. 01/20/19 Gabapentin 600 mg PO TID 06/29/19
--- NOTE | 2019-07-03 15:06 | PN ---
S CIWA - CIWA Score Nausea/Vomitin-Mild Nausea/No Vomiting Muscle Tremors: 2 Anxiety: 1-Mildly Anxious Agitation: 1-Slight > Activity Paroxysmal Sweats: No Perspiration Orientation: 0-Oriented Tacttile Disturbances: 0-None Auditory Disturbances: 0-None Visual Disturbances: 0-None Headache: 0-None Present CIWA-Ar Total Score: 5 BHS Progress Note (SOAP) Subjective: pt intially wanted to leave- says he will stay until tomorrow. Needs to go back to alf as he risks losing his bed O: Vital Signs - 24 hr 07/02/19 07/02/19 07/03/19 17:13 21:29 03:30 Temperature 98.2 F 97.1 F L Pulse Rate 72 79 Respiratory 18 18 18 Rate Blood Pressure 167/75 193/82 H 07/03/19 07/03/19 06:00 09:42 Temperature 97.5 F L 97.3 F L Pulse Rate 63 70 Respiratory 18 18 Rate Blood Pressure 149/83 162/85 Laboratory Tests 06/30/19 06/30/19 06/30/19 07:00 07:00 07:00 WBC 5.8 RBC 4.29 Hgb 13.9 Hct 41.4 MCV 96.4 H MCH 32.3 MCHC 33.5 RDW 14.5 Plt Count 217 MPV 7.7 Sodium 140 Potassium 3.5 Chloride 105 Carbon Dioxide 28 Anion Gap 7 L BUN 11.6 Creatinine 0.7 Est GFR (CKD-EPI)AfAm 117.22 Est GFR (CKD-EPI)NonAf 101.14 Random Glucose 99 Calcium 8.4 L Total Bilirubin 0.4 AST 16 ALT 20 Alkaline Phosphatase 76 Total Protein 6.8 Albumin 3.2 L RPR Titer Nonreactive increased BP a/p Continue alcohol detox protocol- pt will go back to housing in alf high BP- will increase norvasc to 10mg qd f/u PCP
[2019-07-03] MEDS: amLODIPine BESYLATE 10 MG TABLET (FP) PO SCH (17:39)
[2019-07-03] MEDS: THIAMINE HCL 100 MG TABLET (FP) PO SCH (21:21)
[2019-07-03] MEDS: ATORVASTATIN CA 40 MG TABLET (FP) PO SCH (21:21)
[2019-07-03] MEDS: MIRTAZAPINE 30 MG TABLET (FP) PO SCH (21:22)
[2019-07-03] MEDS: CLOPIDOGREL BISULFATE 75 MG TABLET (FP) PO SCH (21:22)
[2019-07-04] MEDS ORDERED: LORazepam 0.5 MG TABLET PO ONE (05:00)
[2019-07-04] MEDS: GABAPENTIN 300 MG CAPSULE (FP) PO SCH ×2 (06:12→15:15)
--- NOTE | 2019-07-04 09:46 | DS ---
[facility] Detox Discharge Summary Admission Date: 06/29/19 Discharge Date: 07/04/19 - History Present History: Alcohol Dependence, Cocaine Dependence Pertinent Past History: 64 yo with a long history of alcohol dependence admitted for alcohol detox- completed. Pt states only uses cocaine when drinking alcohol. will go to meetings as an outpt. d/w pt to get revia or vivitrol as an outpt. pt states he has all meds and does not need any meds PCP- Dr Luis Evans. - Physical Exam Results Vital Signs: Vital Signs Temperature 98.2 F 07/04/19 08:40 Pulse Rate 61 07/04/19 08:40 Respiratory Rate 18 07/04/19 08:40 Blood Pressure 173/63 H 07/04/19 08:40 O2 Sat by Pulse Oximetry (%) - Treatment Hospital Course: Detox Protocol Followed, Detoxed Safely, Responded well, Discharged Condition Good - Medication Discharge Medications: Ambulatory Orders Ascorbic Acid [Vitamin C] 500 mg PO BID 12/24/18 Mirtazapine [Remeron -] 30 mg PO HS #30 tablet 01/19/19 Sertraline HCl [Zoloft -] 50 mg PO DAILY #30 tablet 01/19/19 Amlodipine Besylate [Norvasc -] 5 mg PO DAILY #20 tablet 01/20/19 Aspirin [Aspirin EC] 81 mg PO DAILY #20 tablet. 01/20/19 Atorvastatin Ca [Lipitor] 40 mg PO HS #20 tablet 01/20/19 Calcium (Oyster Shell) [Os-Zaheer 500MG -] 500 mg PO BID #20 tablet 01/20/19 Carvedilol [Coreg -] 3.125 mg PO BID #30 tablet 01/20/19 Clopidogrel Bisulfate [Plavix] 75 mg PO HS #20 tablet 01/20/19 Isosorbide Mononitrate [Isosorbide Mononitrate ER] 30 mg PO DAILY #20 tab.er.24h 01/20/19 Lisinopril 40 mg PO DAILY #20 tablet 01/20/19 Multivitamin [One-Daily Multi-Vitamin] 1 each PO DAILY #20 tablet 01/20/19 Omeprazole Magnesium [Prilosec Otc] 20 mg PO DAILY #20 tablet. 01/20/19 Gabapentin 600 mg PO TID 06/29/19
[2019-07-04] MEDS: PRENATAL VITAMINS W/ FOLIC ACID TABLET (FP) PO SCH (11:28)
[2019-07-04] MEDS: CALCIUM (OYSTER SHELL) 500 MG TABLET (FP) PO SCH (11:28)
[2019-07-04] MEDS: ISOSORBIDE MONONITRATE 30 MG TAB.SR.24H (FP) PO SCH (11:28)
[2019-07-04] MEDS: LISINOPRIL 20 MG TABLET (FP) PO SCH (11:28)
[2019-07-04] MEDS: CARVEDILOL 3.125 MG TABLET (FP) PO SCH (11:28)
[2019-07-04] MEDS: SERTRALINE HCL 50 MG TABLET (FP) PO SCH (11:28)
[2019-07-04] MEDS: ASPIRIN COATED 81 MG TABLET.EC PO SCH (11:28)
[2019-07-04] MEDS: amLODIPine BESYLATE 10 MG TABLET (FP) PO SCH (11:29)
[2019-07-04] MEDS: NICOTINE 21 MG/24 HOURS TOPICAL PATCH TD SCH (11:32)
[2019-07-04 17:13] VITALS: BP 143/78; PULSE 75; TEMP 98.3
== END 2019-07-04 18:24 | disposition home or self-care (01) | DRG 774 ==
LOC: YASAS 17:38 → Y6N 21:47
PROVIDERS: ADMIT Allergy & Immunology; ATTEND Allergy & Immunology
PROC: HZ2ZZZZ Detoxification Services for Substance Abuse Treatment (ICD-10-PCS; principal; 2019-06-30)
DX: F10.230 Alcohol dependence with withdrawal, uncomplicated (principal); F14.20 Cocaine dependence, uncomplicated; F17.210 Nicotine dependence, cigarettes, uncomplicated; F32.9 Major depressive disorder, single episode, unspecified; F19.282 Other psychoactive substance dependence with psychoactive substance-induced sleep disorder; I10 Essential (primary) hypertension; E78.5 Hyperlipidemia, unspecified; M06.9 Rheumatoid arthritis, unspecified; M19.90 Unspecified osteoarthritis, unspecified site; K21.9 Gastro-esophageal reflux disease without esophagitis; M10.9 Gout, unspecified; I25.119 Atherosclerotic heart disease of native coronary artery with unspecified angina pectoris; I25.2 Old myocardial infarction; H26.8 Other specified cataract; M54.5 Low back pain; G89.29 Other chronic pain; Z86.19 Personal history of other infectious and parasitic diseases; Z95.5 Presence of coronary angioplasty implant and graft; Z95.1 Presence of aortocoronary bypass graft
CPT/HCPCS: 36415; 80053; 85027; 86593; 93005; 93010